=== PATIENT | female | born 1945 | race Caucasian/White ===

== ENCOUNTER 2017-01-13 03:55 | Observation (INO) | payer MEDICARE, OTHER ==
[2017-01-13] MEDS ORDERED: Sodium Chloride 0.9% 1000 ML 1,000 ML ONE (04:08)
--- NOTE | 2017-01-13 04:20 | ERPHSYRPT ---
- History of Present Illness Time Seen by Provider: 01/13/17 04:15 Patient Subjective Stated Complaint: PT STATES SHE HAS BEEN EXPERIENCING DIARRHEA SINCE 01/10/17. PT REPORTS ABDOMINAL PAIN. PT STATES TONIGHT THE DIARRHEA EPISODES ARE MORE FREQUENT, OFTEN EVERY 20 MINS. Triage Nursing Assessment: PT IS AOX3, AMBULATORY TO COT WITH NO DIFFICULTIES, SKIN IS PWD, RESPS ARE EASY AND NON LABORED. PT IS AFEBRILE. PT REPORTS ABD PAIN THAT IS NON RADIATING. PT DENIES ANY OCCURENCE OF DARK STOOLS. Physician History: 71 year old female has a 2 day history of general abd pain and diarrhea , no prior abd surgery, had negative colonoscopy 2 years ago by her report except for redundent "meandering" colon; no vomiting; Timing/Duration: day(s), gradual onset Activities at Onset: none Quality: cramping, fullness Abdominal Pain Onset Location: generalized abdomen Pain Radiation: no radiation Severity of Pain-Max: moderate Severity of Pain-Current: moderate Modifying Factors: Improves With: nothing Associated Symptoms: diarrhea Previous symptoms: no prior history Allergies/Adverse Reactions: No Known Drug Allergies Allergy (Verified 01/13/17 04:06) Home Medications: Amlodipine Besylate 5 mg [Norvasc 5 mg] 5 mg PO DAILY 08/07/15 [History] Carvedilol 6.25 mg [Coreg 6.25 MG] 6.25 mg PO BID 08/07/15 [History] Hydralazine HCl 25 mg PO BID 08/07/15 [History] Lisinopril 40 mg PO DAILY 08/07/15 [History] Potassium Chloride [Klor-Con 8] 8 meq PO BID 08/07/15 [History] Dabigatran Etexilate Mesylate [Pradaxa] 150 mg PO BID 01/03/17 [History] Furosemide 40 mg [Lasix 40 MG] 40 mg PO DAILY 01/03/17 [History] Hydrochlorothiazide 25 mg [hydroDIURIL 25 MG] 25 mg PO DAILY 01/03/17 [ History] Magnesium 250 mg PO DAILY 01/03/17 [History] Oxycodone HCl/Acetaminophen [Percocet 7.5-325 mg Tablet] 1 each PO UD PRN [History] Hx Tetanus, Diphtheria Vaccination/Date Given: Yes Hx Influenza Vaccination/Date Given: Yes Hx Pneumococcal Vaccination/Date Given: Yes Immunizations Up to Date: Yes - Review of Systems Constitutional: No Fever, No Chills Eyes: No Symptoms Ears, Nose, & Throat: No Symptoms Respiratory: No Cough, No Dyspnea Cardiac: No Chest Pain, No Edema, No Syncope Abdominal/Gastrointestinal: Abdominal Pain, Diarrhea, No Nausea, No Vomiting Genitourinary Symptoms: No Dysuria Musculoskeletal: No Back Pain, No Neck Pain Skin: No Rash Neurological: No Dizziness, No Focal Weakness, No Sensory Changes Psychological: No Symptoms Endocrine: No Symptoms All Other Systems: Reviewed and Negative - Past Medical History Pertinent Past Medical History: Yes Neurological History: No Pertinent History ENT History: Glaucoma Cardiac History: Arrhythmia Respiratory History: No Pertinent History Endocrine Medical History: No Pertinent History Musculoskeletal History: No Pertinent History GI Medical History: No Pertinent History History: No Pertinent History Psycho-Social History: No Pertinent History Female Reproductive Disorders: Breast Cancer Other Medical History: BREAST CANCER WITH LUMPECTOMY 2 YEARS AGO. - Past Surgical History Past Surgical History: Yes Neuro Surgical History: No Pertinent History Cardiac: Cardiac Catheterization Respiratory: No Pertinent History Gastrointestinal: Other Genitourinary: No Pertinent History Musculoskeletal: Joint Replacement, Other Female Surgical History: Lumpectomy Other Surgical History: colonoscopy 2000,left breast lumpectomy,right foot neuroma,SHOULDER REPLACEMENT 2016 - Social History Smoking Status: Never smoker Exposure to second hand smoke: No Drug Use: none Patient Lives Alone: No - Nursing Vital Signs Nursing Vital Signs: Initial Vital Signs Temperature 98.5 F Temperature Source Oral Pulse Rate 64 Respiratory Rate 22 Blood Pressure [Right Arm] 152/82 Pain Intensity 0 - Physical Exam General Appearance: no apparent distress, alert Eye Exam: PERRL/EOMI, eyes nml inspection Ears, Nose, Throat Exam: normal ENT inspection, pharynx normal, moist mucous membranes Neck Exam: normal inspection, non-tender, supple, full range of motion Respiratory Exam: normal breath sounds, lungs clear, No respiratory distress Cardiovascular Exam: regular rate/rhythm, normal heart sounds Gastrointestinal/Abdomen Exam: soft, distention (slight general ), No tenderness , No mass, No pulsatile mass Pelvic Exam: deferred Rectal Exam: deferred Back Exam: normal inspection, normal range of motion, No CVA tenderness, No vertebral tenderness Extremity Exam: normal inspection, normal range of motion, pelvis stable Neurologic Exam: alert, oriented x 3, cooperative, normal mood/affect, nml cerebellar function, sensation nml, No motor deficits Skin Exam: normal color, warm, dry SpO2: 96 Oxygen Delivery: Room Air - Course Nursing assessment & vital signs reviewed: Yes EKG Interpreted by Me: Sinus Rhythm, Left [place] Deviation, LAFB, Right Bundle Branch Block, Non-specific ST Changes, Other (new since 2013) - CT Exams Abdomen/Pelvis CT Interpretation: Tele-radiologist Report, Other (colitis, diverticulosis, lung nodules, renal cyst) Ordered Tests: Active Orders 24 hr Category Date Time Status Clean Catch Urine Specimen STAT Care 01/13/17 04:22 Active EKG-ER Only STAT Care 01/13/17 04:22 Active IV Insertion STAT Care 01/13/17 04:22 Active ABDOMEN AND PELVIS W/0 CONTRAS [CT] Stat Exams 01/13/17 04:22 Taken AMYLASE Stat Lab 01/13/17 04:05 Completed CBC W DIFF Stat Lab 01/13/17 04:05 Completed CMP Stat Lab 01/13/17 04:05 Completed LIPASE Stat Lab 01/13/17 04:05 Completed Lactic Acid Urgent Lab 01/13/17 04:22 Completed Occult Blood,Stool Other Stat Lab 01/13/17 05:08 Ordered TROPONIN Stat Lab 01/13/17 04:00 Completed UA Stat Lab 01/13/17 04:22 Ordered Medication Summary Generic Name Dose Route Start Last Admin Trade Name Freq PRN Reason Stop Dose Admin Sodium Chloride 1,000 mls @ 100 mls/hr 01/13/17 04:30 01/13/17 04:49 Sodium Chloride 0.9% 1000 Ml IV 02/12/17 04:29 100 mls/hr .Q10H JER Administration Levofloxacin/Dextrose 150 mls @ 100 mls/hr 01/13/17 04:32 Levofloxacin 750mg/150ml D5w IV 01/13/17 06:01 STAT ONE Metronidazole 100 mls @ 100 mls/hr 01/13/17 04:33 01/13/17 04:48 Flagyl 500 Mg Ivpb IV 01/13/17 05:32 100 mls/hr STAT ONE Administration Potassium Chloride 100 mls @ 50 mls/hr 01/13/17 05:00 Potassium Chloride 20 Meq In Water 100ml IV 01/13/17 08:59 Q2H JER Discontinued Medications Generic Name Dose Route Start Last Admin Trade Name Mariajose PRN Reason Stop Dose Admin Sodium Chloride Confirm 01/13/17 04:08 Sodium Chloride 0.9% 1000 Ml Administered 01/13/17 04:09 Dose 1,000 mls @ ud .ROUTE .STK-MED ONE Metronidazole Confirm 01/13/17 04:43 Flagyl 500 Mg Ivpb Administered 01/13/17 04:44 Dose 100 mls @ ud IV .STK-MED ONE Levofloxacin/Dextrose Confirm 01/13/17 04:43 Levofloxacin 750mg/150ml D5w Administered 01/13/17 04:44 Dose 150 mls @ ud IV .STK-MED ONE Lab/Rad Data: Laboratory Result Diagrams 01/13/17 04:05 01/13/17 04:05 Laboratory Results 01/13/17 01/13/17 01/13/17 Range/Units 04:22 04:05 04:05 WBC 15.9 H (4.0-10.5) K/mm3 RBC 4.56 (4.1-5.4) M/mm3 Hgb 13.5 (12.0-16.0) gm/dl Hct 40.8 (35-47) % MCV 89.5 (78-100) fl MCH 29.6 (26-32) pg MCHC 33.1 (32-36) g/dl RDW 14.9 H (11.5-14.0) % Plt Count 481 H (150-450) K/mm3 MPV 9.6 H (6-9.5) fl Gran % 78.3 H (36.0-66.0) % Lymphocytes % 11.6 L (24.0-44.0) % Monocytes % 9.0 (0.0-12.0) % Eosinophils % 0.8 (0.00-5.0) % Basophils % 0.3 (0.0-0.4) % Basophils # 0.04 (0-0.4) Sodium 139 (136-145) mEq/L Potassium 3.2 L (3.5-5.1) mEq/L Chloride 102 (98-107) mEq/L Carbon Dioxide 27.0 (21-32) mEq/L Anion Gap 12.8 (5-15) MEQ/L BUN 37 H (9-20) mg/dL Creatinine 1.29 (0.55-1.30) mg/dl Estimated GFR 43 ML/MIN Glucose 160 H (70-110) MG/DL Lactic Acid 1.6 (0.4-2.0) Calcium 8.9 (8.5-10.1) mg/dL Total Bilirubin 0.3 (0.2-1.0) mg/dL AST 24 (15-37) U/L ALT 18 (12-78) U/L Alkaline Phosphatase 90 (46-116) U/L Troponin I (0.000-0.056) ng/ml Serum Total Protein 8.1 (6.4-8.2) gm/dL Albumin 3.6 (3.4-5.0) g/dL Amylase 53 (25-115) U/L Lipase 122 (73-393) U/L 01/13/17 Range/Units 04:00 WBC (4.0-10.5) K/mm3 RBC (4.1-5.4) M/mm3 Hgb (12.0-16.0) gm/dl Hct (35-47) % MCV (78-100) fl MCH (26-32) pg MCHC (32-36) g/dl RDW (11.5-14.0) % Plt Count (150-450) K/mm3 MPV (6-9.5) fl Gran % (36.0-66.0) % Lymphocytes % (24.0-44.0) % Monocytes % (0.0-12.0) % Eosinophils % (0.00-5.0) % Basophils % (0.0-0.4) % Basophils # (0-0.4) Sodium (136-145) mEq/L Potassium (3.5-5.1) mEq/L Chloride (98-107) mEq/L Carbon Dioxide (21-32) mEq/L Anion Gap (5-15) MEQ/L BUN (9-20) mg/dL Creatinine (0.55-1.30) mg/dl Estimated GFR ML/MIN Glucose (70-110) MG/DL Lactic Acid (0.4-2.0) Calcium (8.5-10.1) mg/dL Total Bilirubin (0.2-1.0) mg/dL AST (15-37) U/L ALT (12-78) U/L Alkaline Phosphatase (46-116) U/L Troponin I < 0.017 (0.000-0.056) ng/ml Serum Total Protein (6.4-8.2) gm/dL Albumin (3.4-5.0) g/dL Amylase (25-115) U/L Lipase (73-393) U/L - Progress Progress: improved, re-examined Progress Note: 01/13/17 05:[address] 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
[2017-01-13 04:30] LABS: BASOPHIL % 0.3 % (0.0-0.4); Eosinophil % 0.8 % (0.00-5.0); Granulocytes % 78.3 % (36.0-66.0); Lymphocytes % 11.6 % (24.0-44.0); Mean Cell Volume 89.5 fl (78-100); Mean Corpuscular Hemoglobin 29.6 pg (26-32); Mean Platelet Volume 9.6 fl (6-9.5); Platelet Count 481 K/mm3 (150-450); Red Blood Count 4.56 M/mm3 (4.1-5.4); Red Cell Distribution Width 14.9 % (11.5-14.0); White Blood Count 15.9 K/mm3 (4.0-10.5)
[2017-01-13] MEDS ORDERED: LEVOFLOXACIN 750MG/150ML D5W 150 ML IV ONE ×2 (04:32→04:43)
[2017-01-13] MEDS ORDERED: FLAGYL 500 MG IVPB 100 ML IV ONE ×2 (04:33→04:43)
[2017-01-13 04:40] LABS: ALBUMIN 3.6 g/dL (3.4-5.0); ANION GAP 12.8 MEQ/L (5-15); BILIRUBIN,TOTAL 0.3 mg/dL (0.2-1.0); Potassium 3.2 mEq/L (3.5-5.1); Total Protein 8.1 gm/dL (6.4-8.2)
[2017-01-13] MEDS: Sodium Chloride 0.9% 1000 ML 1,000 ML IV SCH ×2 (04:49→21:15)
[2017-01-13] MEDS ORDERED: POTASSIUM CHLORIDE 20 mEq IN WATER 100ML 100 ML IV SCH ×2 (05:00→08:00)
[2017-01-13] MEDS ORDERED: NovoLIN R SQ PRN (06:40)
[2017-01-13] MEDS ORDERED: Phenergan 25 MG INJ IM PRN (06:40)
[2017-01-13] MEDS ORDERED: MORPHINE SULFATE 2 MG INJ IV PRN (06:40)
[2017-01-13] MEDS: FLAGYL 500 MG IVPB 100 ML IV SCH ×4 (07:55→23:57)
--- NOTE | 2017-01-13 08:14 | PCM.HP ---
History of Present Illness - Chief Complaint Chief Complaint: colitis Date: 01/13/17 History of Present Illness: is a 71 year old female. who has had diarrhea since Friday. No fevers or vomiting. no bloody stools or mucous. Some intermittent cramping abdominal pain. NO chills no recent antibiotics. No new medications. No known food exposures. - Review of Systems Constitutional: No Fever, No Chills Eyes: No Symptoms Ears, Nose, & Throat: No Symptoms Respiratory: No Cough, No Short Of Breath Cardiac: No Chest Pain, No Edema, No Syncope Abdominal/Gastrointestinal: Abdominal Pain, Diarrhea, No Nausea, No Vomiting Genitourinary Symptoms: No Dysuria Musculoskeletal: No Back Pain, No Neck Pain Skin: No Rash Neurological: No Dizziness, No Focal Weakness, No Sensory Changes Psychological: No Symptoms Endocrine: No Symptoms Hematologic/Lymphatic: No Symptoms Immunological/Allergic: No Symptoms Medications & Allergies Home Medications: Home Medication List Amlodipine Besylate 5 mg [Norvasc 5 mg] 5 mg PO DAILY 08/07/15 [History Confirmed 01/13/17] Carvedilol 6.25 mg [Coreg 6.25 MG] 6.25 mg PO BID 08/07/15 [History Confirmed 01/13/17] Hydralazine HCl 25 mg PO BID 08/07/15 [History Confirmed 01/13/17] Lisinopril 40 mg PO DAILY 08/07/15 [History Confirmed 01/13/17] Potassium Chloride [Klor-Con 8] 8 meq PO BID 08/07/15 [History Confirmed ] Dabigatran Etexilate Mesylate [Pradaxa] 150 mg PO BID 01/03/17 [History Confirmed 01/13/17] Furosemide 40 mg [Lasix 40 MG] 40 mg PO DAILY 01/03/17 [History Confirmed 01/13/17] Hydrochlorothiazide 25 mg [hydroDIURIL 25 MG] 25 mg PO DAILY 01/03/17 [ History Confirmed 01/13/17] Magnesium 250 mg PO DAILY 01/03/17 [History Confirmed 01/13/17] Oxycodone HCl/Acetaminophen [Percocet 7.5-325 mg Tablet] 1 each PO Q6HPRN PRN [History Confirmed 01/13/17] Allergies/Adverse Reactions: Allergies Allergy/AdvReac Type Severity Reaction Status Date / Time No Known Drug Allergies Allergy Verified 01/13/17 07:25 - Past Medical History Past Medical History: Yes Neurological History: No Pertinent History ENT History: Glaucoma Cardiac History: Arrhythmia Respiratory History: No Pertinent History Endocrine Medical History: No Pertinent History Musculoskelatal History: No Pertinent History GI Medical History: No Pertinent History History: No Pertinent History Pyscho-Social History: No Pertinent History Reproductive Disorders: Breast Cancer Comment: BREAST CANCER WITH LUMPECTOMY 2 YEARS AGO. - Female History Are you now?: No - Past Surgical History Past Surgical History: Yes Neuro Surgical History: No Pertinent History Cardiac History: Cardiac Catheterization Respiratory Surgery: No Pertinent History GI Surgical History: Other Genitourinary Surgical Hx: No Pertinent History Musculskeletal Surgical Hx: Joint Replacement, Other Female Surgical History: Lumpectomy Other Surgical History: colonoscopy 2000,left breast lumpectomy,right foot neuroma,SHOULDER REPLACEMENT 2016 - Social History Smoking Status: Never smoker Exposure to second hand smoke: No Alcohol: None Drug Use: none - Physical Exam Vital Signs: Vital Signs - 24 hr Temp Pulse Resp BP Pulse Ox 01/13/17 07:27 98.6 F 69 18 177/80 98 01/13/17 05:53 68 16 180/90 98 01/13/17 05:32 96 01/13/17 05:09 64 22 96 01/13/17 03:56 98.5 F 76 20 152/82 96 General Appearance: no apparent distress, alert Neurologic Exam: alert, oriented x 3, cooperative, normal mood/affect, nml cerebellar function, nml station & gait, sensation nml, No motor deficits Eye Exam: PERRL/EOMI, eyes nml inspection Ears, Nose, Throat Exam: normal ENT inspection, pharynx normal, moist mucous membranes Neck Exam: normal inspection, non-tender, supple, full range of motion Respiratory Exam: normal breath sounds, lungs clear, No respiratory distress Cardiovascular Exam: regular rate/rhythm, normal heart sounds, normal peripheral pulses Gastrointestinal/Abdomen Exam: soft, normal bowel sounds, No tenderness, No mass Back Exam: normal inspection, normal range of motion, No CVA tenderness, No vertebral tenderness Extremity Exam: normal inspection, normal range of motion, pelvis stable Skin Exam: normal color, warm, dry, No rash Lymphatic Exam: No adenopathy Assessment/Plan (1) Colitis presumed to be due to infection Current Visit: Yes Status: Acute Assessment & Plan: she has received abx in the ED levofloxacin and flagyl will continue for now with fluid and potassium replacement check mag monitor for symptoms and dehydration c. diff testing negative monitor stools try loperamide if needed for severe diarrhea Code(s): A09 - INFECTIOUS GASTROENTERITIS AND COLITIS, UNSPECIFIED (2) Paroxysmal a-fib Current Visit: Yes Status: Acute Code(s): I48.0 - PAROXYSMAL ATRIAL FIBRILLATION (3) Essential hypertension Current Visit: Yes Status: Acute Code(s): I10 - ESSENTIAL (PRIMARY) HYPERTENSION
[2017-01-13] MEDS ORDERED: NON-FORMULARY ITEM (Oxycodone Hcl/Acetaminophen [Percocet 7.5-325 Mg Tablet] 1 EACH) PO PRN (08:24)
[2017-01-13 09:01] LABS: COMPLETE URINE MICROSCOPIC? YES; Collection Type VOID
--- NOTE | 2017-01-13 09:06 | XRAY ---
Indication: Abdominal pain and diarrhea. Multiple contiguous axial images obtained through the abdomen and pelvis without contrast as ordered. Comparison: None Lung bases hyperinflated with mild bilateral fibrosis/scarring and minimal patchy groundglass opacities in the visualized right middle lobe. No consolidation or large effusion. Heart is not enlarged. Noncontrasted stomach and bowel loops appear nonobstructed. There are moderate fluid distended small and large bowel loops with fluid leveling and wall thickening favoring enterocolitis. Mild pericolonic stranding seen of the left hemicolon including sigmoid. Mild scattered descending/sigmoid diverticulosis. No free fluid/air. Reported appendectomy and hysterectomy. Spleen surgically absent. 1.5 cm right mid renal cortical cyst. Gallbladder also not seen either contracted or surgically absent. Pancreas appears atrophic. Remaining liver, adrenal glands, kidneys, ureters, and bladder appear unremarkable for noncontrast exam. Mild aortoiliac calcifications without AAA. Osseous structures demonstrates moderate/advanced multilevel spinal degenerative spondylosis. There is grade 1 spondylolisthesis of L4 on L5 on S1. Impression: 1. Fluid distended small and large bowel loops with wall thickening favoring enterocolitis. 2. Incidental right renal cyst. 3. Partially visualized subtle right middle lobe groundglass airspace opacities. Correlate clinically. 4. Multilevel spinal degenerative spondylosis and grade 1 spondylolisthesis of L4 on L5 on S1. Comment: Preliminary interpretation was made by [facility]. No discrepancy. CT DI 18.52
[2017-01-13] MEDS: PERCOCET TABLET 5/325MG PO PRN ×3 (09:22→22:54)
[2017-01-13] MEDS: Apresoline 25 MG TABLET PO SCH ×2 (09:22→22:44)
[2017-01-13] MEDS: NORVASC 5 MG PO SCH (09:23)
[2017-01-13] MEDS: PRADAXA 75 MG PO SCH ×2 (09:23→22:43)
[2017-01-13] MEDS: hydroDIURIL 25 MG PO SCH (09:23)
[2017-01-13] MEDS: Coreg 6.25 MG PO SCH ×2 (09:23→22:44)
[2017-01-13] MEDS: Zestril 20 MG PO SCH (09:23)
[2017-01-13] MEDS: Klor Con 10 MEQ PO SCH ×2 (09:23→22:44)
[2017-01-13] MEDS ORDERED: NON-FORMULARY ITEM (Lisinopril [Lisinopril] 40 MG) PO SCH (10:00)
[2017-01-13] MEDS ORDERED: NON-FORMULARY ITEM (Dabigatran Etexilate Mesylate [Pradaxa] 150 MG) PO SCH (10:00)
[2017-01-13] MEDS ORDERED: POTASSIUM CHLORIDE 8 MEQ PO SCH (10:00)
[2017-01-13 12:36] LABS: Bacteria FEW /HPF (NEGATIVE); Epithelial Cells FEW /HPF (FEW)
[2017-01-13] MEDS: Magnesium 1 Gm / 100 Ml D5W*** 100 ML IV SCH ×2 (21:24→23:01)
[2017-01-13] MEDS ORDERED: LEVOFLOXACIN 750MG/150ML D5W 150 ML IV SCH (22:00)
[2017-01-14 05:58] LABS: BASOPHIL % 0.4 % (0.0-0.4); Eosinophil % 2.7 % (0.00-5.0); Granulocytes % 65.5 % (36.0-66.0); Lymphocytes % 16.6 % (24.0-44.0); Mean Cell Volume 90.6 fl (78-100); Mean Corpuscular Hemoglobin 30.1 pg (26-32); Mean Platelet Volume 9.5 fl (6-9.5); Monocytes % 14.8 % (0.0-12.0); Platelet Count 414 K/mm3 (150-450); Red Blood Count 3.82 M/mm3 (4.1-5.4); Red Cell Distribution Width 14.8 % (11.5-14.0)
[2017-01-14] MEDS: PERCOCET TABLET 5/325MG PO PRN (06:03)
[2017-01-14] MEDS: FLAGYL 500 MG IVPB 100 ML IV SCH (06:04)
[2017-01-14 06:14] LABS: ANION GAP 11.5 MEQ/L (5-15); BILIRUBIN,TOTAL 0.4 mg/dL (0.2-1.0); Carbon Dioxide 25.7 mEq/L (21-32); Potassium 3.3 mEq/L (3.5-5.1); Total Protein 6.6 gm/dL (6.4-8.2)
[2017-01-14 08:08] VITALS: BP 148/75; PULSE 59; O2SAT 98
--- NOTE | 2017-01-14 08:17 | PCM.DCORD ---
- Discharge Discharge Date: 01/14/17 Disposition: Home, Self-Care Condition: Good Prescriptions: New Metronidazole 500 mg [Flagyl 500 MG] 500 mg PO TID #15 tablet Levofloxacin [Levaquin] 500 mg PO DAILY #5 tablet Continue Potassium Chloride [Klor-Con 8] 8 meq PO BID Hydralazine HCl 25 mg PO BID Amlodipine Besylate 5 mg [Norvasc 5 mg] 5 mg PO DAILY Carvedilol 6.25 mg [Coreg 6.25 MG] 6.25 mg PO BID Lisinopril 40 mg PO DAILY Hydrochlorothiazide 25 mg [hydroDIURIL 25 MG] 25 mg PO DAILY Dabigatran Etexilate Mesylate [Pradaxa] 150 mg PO BID Furosemide 40 mg [Lasix 40 MG] 40 mg PO DAILY Magnesium 250 mg PO DAILY Oxycodone HCl/Acetaminophen [Percocet 7.5-325 mg Tablet] 1 each PO Q6HPRN PRN PRN Reason: Pain Follow up with: ALEXIS VELAZQUEZ [Primary Care Provider] - 1 Week
[2017-01-14] MEDS ORDERED: Klor Con 10 MEQ PO SCH (10:00)
[2017-01-14] MEDS: Apresoline 25 MG TABLET PO SCH (10:23)
[2017-01-14] MEDS: NORVASC 5 MG PO SCH (10:23)
[2017-01-14] MEDS: Zestril 20 MG PO SCH (10:23)
[2017-01-14] MEDS: hydroDIURIL 25 MG PO SCH (10:23)
[2017-01-14] MEDS: Coreg 6.25 MG PO SCH (10:23)
[2017-01-14] MEDS: PRADAXA 75 MG PO SCH (10:24)
--- NOTE | 2017-01-14 17:53 | PCM.DS ---
Discharge Summary Date of Admission: 01/13/17 06:27 Date of Discharge: 01/14/17 Admitting Physician: ALEXIS VELAZQUEZ Primary Care Provider: ALEXIS VELAZQUEZ Allergies Allergies No Known Drug Allergies Allergy (Verified 01/13/17 07:25) Hospital Summary - Hospital Course Hospital Course: She presented with frequent severe diarrhea. Was found to have mild dehydration and acute collitis. She had negative c. diff testing. She was treated with levaquin and flagyl and the diarrhea improved greatly she was without pain or nausea and tolerating po well and was discharged to home. - Vitals & Intake/Output Vital Signs: Vital Signs Temperature 98.8 F 01/14/17 08:00 Pulse Rate 59 L 01/14/17 08:00 Respiratory Rate 18 01/14/17 08:00 Blood Pressure 148/75 01/14/17 08:00 O2 Sat by Pulse Oximetry 98 01/14/17 08:00 Oxygen-Last Documented O2 Percentage 2 Liters = 28% Intake & Output: Intake & Output 01/12/17 01/13/17 01/14/17 01/15/17 11:59 11:59 11:59 11:59 Intake Total 2346 Output Total 400 Balance 1946 Weight 78.245 kg 82.327 kg - Lab Result Diagrams: 01/14/17 05:15 01/14/17 05:15 Lab Results-Last 24 Hrs: Lab Results-Last 24 Hours 01/13/17 01/14/17 01/14/17 Range/Units 18:31 05:15 05:15 WBC 10.0 (4.0-10.5) K/mm3 RBC 3.82 L (4.1-5.4) M/mm3 Hgb 11.5 L (12.0-16.0) gm/dl Hct 34.6 L (35-47) % MCV 90.6 (78-100) fl MCH 30.1 (26-32) pg MCHC 33.2 (32-36) g/dl RDW 14.8 H (11.5-14.0) % Plt Count 414 (150-450) K/mm3 MPV 9.5 (6-9.5) fl Gran % 65.5 (36.0-66.0) % Lymphocytes % 16.6 L (24.0-44.0) % Monocytes % 14.8 H (0.0-12.0) % Eosinophils % 2.7 (0.00-5.0) % Basophils % 0.4 (0.0-0.4) % Basophils # 0.04 (0-0.4) Sodium 141 (136-145) mEq/L Potassium 3.5 3.3 L (3.5-5.1) mEq/L Chloride 107 (98-107) mEq/L Carbon Dioxide 25.7 (21-32) mEq/L Anion Gap 11.5 (5-15) MEQ/L BUN 21 H (9-20) mg/dL Creatinine 1.06 (0.55-1.30) mg/dl Estimated GFR 54 ML/MIN Glucose 97 (70-110) MG/DL Calcium 8.6 (8.5-10.1) mg/dL Magnesium (1.8-2.4) mg/dL Total Bilirubin 0.4 (0.2-1.0) mg/dL AST 22 (15-37) U/L ALT 15 (12-78) U/L Alkaline Phosphatase 71 (46-116) U/L Serum Total Protein 6.6 (6.4-8.2) gm/dL Albumin 3.0 L (3.4-5.0) g/dL 01/14/17 Range/Units 05:15 WBC (4.0-10.5) K/mm3 RBC (4.1-5.4) M/mm3 Hgb (12.0-16.0) gm/dl Hct (35-47) % MCV (78-100) fl MCH (26-32) pg MCHC (32-36) g/dl RDW (11.5-14.0) % Plt Count (150-450) K/mm3 MPV (6-9.5) fl Gran % (36.0-66.0) % Lymphocytes % (24.0-44.0) % Monocytes % (0.0-12.0) % Eosinophils % (0.00-5.0) % Basophils % (0.0-0.4) % Basophils # (0-0.4) Sodium (136-145) mEq/L Potassium (3.5-5.1) mEq/L Chloride (98-107) mEq/L Carbon Dioxide (21-32) mEq/L Anion Gap (5-15) MEQ/L BUN (9-20) mg/dL Creatinine (0.55-1.30) mg/dl Estimated GFR ML/MIN Glucose (70-110) MG/DL Calcium (8.5-10.1) mg/dL Magnesium 2.2 (1.8-2.4) mg/dL Total Bilirubin (0.2-1.0) mg/dL AST (15-37) U/L ALT (12-78) U/L Alkaline Phosphatase (46-116) U/L Serum Total Protein (6.4-8.2) gm/dL Albumin (3.4-5.0) g/dL Discharge Exam General Appearance: no apparent distress Neurologic Exam: alert, oriented x 3, cooperative Skin Exam: warm, dry Eye Exam: No scleral icterus Ears, Nose, Throat Exam: moist mucous membranes Neck Exam: non-tender, supple Respiratory Exam: lungs clear, No diminished breath sounds Cardiovascular Exam: regular rate/rhythm, normal heart sounds Gastrointestinal/Abdomen Exam: soft, normal bowel sounds, No tenderness Extremity Exam: normal inspection Final Diagnosis/Problem List - Final Discharge Diagnosis/Problem (1) Colitis presumed to be due to infection Status: Acute (2) Paroxysmal a-fib Status: Acute (3) Essential hypertension Status: Acute - Discharge Disposition: Home, Self-Care Condition: Good Prescriptions: New Metronidazole 500 mg [Flagyl 500 MG] 500 mg PO TID #15 tablet Levofloxacin [Levaquin] 500 mg PO DAILY #5 tablet Continue Potassium Chloride [Klor-Con 8] 8 meq PO BID Hydralazine HCl 25 mg PO BID Amlodipine Besylate 5 mg [Norvasc 5 mg] 5 mg PO DAILY Carvedilol 6.25 mg [Coreg 6.25 MG] 6.25 mg PO BID Lisinopril 40 mg PO DAILY Hydrochlorothiazide 25 mg [hydroDIURIL 25 MG] 25 mg PO DAILY Dabigatran Etexilate Mesylate [Pradaxa] 150 mg PO BID Furosemide 40 mg [Lasix 40 MG] 40 mg PO DAILY Magnesium 250 mg PO DAILY Oxycodone HCl/Acetaminophen [Percocet 7.5-325 mg Tablet] 1 each PO Q6HPRN PRN PRN Reason: Pain Instructions: Abdominal Pain-Adult, Diarrhea and Traveler's Diarrhea -- Adult Follow up with: ALEXIS VELAZQUEZ [Primary Care Provider] - 01/21/17 9:30 am Forms: Discharge Instructions, Patient Portal Information
[2017-01-14] MEDS ORDERED: LEVOFLOXACIN 750MG/150ML D5W 150 ML IV SCH (22:00)
== END 2017-01-14 12:15 | disposition home or self-care (01) ==
LOC: ED 03:55 → ICU 06:27 → MED SURG 12:55
PROVIDERS: ADMIT Family Medicine; ATTEND Family Medicine
DX: A09 Infectious gastroenteritis and colitis, unspecified (principal); I48.0 Paroxysmal atrial fibrillation; I10 Essential (primary) hypertension; Z79.01 Long term (current) use of anticoagulants; Z79.899 Other long term (current) drug therapy; Z85.3 Personal history of malignant neoplasm of breast
CPT/HCPCS: 93268; 96365; 99285; 36000; 96360; 93005; 82150; 81000; 36415 ×2; 82272; 84132; 83690; 83735 ×2; 87493 ×2; 87045; 87335; 87046; 85025 ×2; 80053 ×2; 84484; 74176; 94760; 83605; A9270 ×12; 96361; G0378; J1956; J3475; J3480

== ENCOUNTER 2019-04-20 03:33 | Emergency (ER) | payer MEDICARE, OTHER ==
[2019-04-20] MEDS ORDERED: Sodium Chloride 0.9% 1000 ML 1,000 ML ONE (03:59)
[2019-04-20] MEDS: Sodium Chloride 0.9% 1000 ML 1,000 ML IV SCH (04:03)
[2019-04-20] MEDS ORDERED: APRESOLINE 20 MG/ML INJ ONE ×2 (04:05→06:11)
[2019-04-20] MEDS: APRESOLINE 20 MG/ML INJ IV ONE ×2 (04:07→06:13)
[2019-04-20 04:10] LABS: BASOPHIL % 0.6 % (0.0-0.4); Basophil (Absolute #) 0.07 (0-0.4); Eosinophil % 1.3 % (0.00-5.0); Eosinophil (Absolute #) 0.15 (0-0.5); Granulocytes % 64.3 % (36.0-66.0); Hematocrit 43.6 % (35-47); Hemoglobin 14.4 gm/dl (12.0-16.0); Lymphocyte (Absolute #) 2.38 (1.0-4.6); Lymphocytes % 20.9 % (24.0-44.0); Mean Cell Volume 92.4 fl (78-100); Mean Corpuscular Hemoglobin 30.5 pg (26-32); Mean Platelet Volume 9.9 fl (6-9.5); Monocyte (Absolute #) 1.47 (0.0-1.3); Monocytes % 12.9 % (0.0-12.0); Platelet Count 396 K/mm3 (150-450); Red Blood Count 4.72 M/mm3 (4.1-5.4); Red Cell Distribution Width 14.9 % (11.5-14.0); White Blood Count 11.4 K/mm3 (4.0-10.5)
--- NOTE | 2019-04-20 04:10 | ERPHSYRPT ---
- History of Present Illness Time Seen by Provider: 04/20/19 03:40 Source: patient Exam Limitations: clinical condition Patient Subjective Stated Complaint: Nose bleed Triage Nursing Assessment: Patient ambulated back to ED and transferred self to bed. Patient A+O X 3. Patient's skin pink, warm and dry. Patient complains of nose bleed since 0145 after she blew her nose. Patient denies pain or discomfort. Patient applied pressure and unable to stop bleed. Active bright red blood coming from left nare at this time. Nasal clamp applied upon arrival with ice placed on bridge of nose. Physician History: PATIENT WITH A HISTORY OF PAROXYSMAL ATRIAL FIBRILLATION, ON ANTICOAGULANTS XARELTO 15MG DAILY. HAD ONSET OF NOSE BLEED LEFT NARES AFTER BLOWING HER NOSE AT 0145. HAS HAD RECENT NOSE BLEED 2 WEEKS AND HAD HER XARELTO 20MG DAILY TAPERED TO XARELTO 15MG DAILY. DENIES ASSOCIATED FACIAL PAIN, NASAL CONGESTION OR HEADACHE. Timing/Duration: abrupt onset Severity: severe ENT Location: nose Prearrival Treatment: no prearrival treatment Modifying Factors: Improves With: other (BLOWING HER NOSE) Associated Symptoms: other (HYPERTENSION) Allergies/Adverse Reactions: No Known Drug Allergies Allergy (Verified 04/20/19 03:39) Home Medications: Amlodipine Besylate 5 mg [Norvasc 5 mg] 5 mg PO DAILY 08/07/15 [History] Carvedilol 6.25 mg [Coreg 6.25 MG] 6.25 mg PO BID 08/07/15 [History] Hydralazine HCl 50 mg PO BID 08/07/15 [History] Lisinopril 40 mg PO DAILY 08/07/15 [History] Potassium Chloride [Klor-Con 8] 8 meq PO TID 08/07/15 [History] Furosemide 40 mg [Lasix 40 MG] 40 mg PO DAILY 01/03/17 [History] Magnesium 250 mg PO DAILY 01/03/17 [History] Rivaroxaban [Xarelto] 15 mg PO DAILY 04/20/19 [History] Hx Tetanus, Diphtheria Vaccination/Date Given: Yes Hx Influenza Vaccination/Date Given: Yes Hx Pneumococcal Vaccination/Date Given: Yes Immunizations Up to Date: Yes - Review of Systems Constitutional: No Fever, No Chills Eyes: No Symptoms Ears, Nose, & Throat: Epistaxis (LEFT NARES) Respiratory: No Symptoms, No Cough, No Dyspnea Cardiac: No Chest Pain, No Edema, No Syncope Abdominal/Gastrointestinal: Constipation, No Abdominal Pain, No Nausea, No Vomiting, No Diarrhea Genitourinary Symptoms: No Symptoms, No Dysuria Musculoskeletal: No Symptoms, No Back Pain, No Neck Pain Skin: No Symptoms, No Rash Neurological: No Symptoms, No Dizziness, No Focal Weakness, No Sensory Changes Psychological: No Symptoms Endocrine: No Symptoms All Other Systems: Reviewed and Negative - Past Medical History Pertinent Past Medical History: Yes Neurological History: Peripheral Neuropathy ENT History: Glaucoma Cardiac History: Arrhythmia, Hypertension Respiratory History: No Pertinent History Endocrine Medical History: No Pertinent History Musculoskeletal History: Other GI Medical History: No Pertinent History History: No Pertinent History Psycho-Social History: No Pertinent History Female Reproductive Disorders: Breast Cancer Other Medical History: R shoulder replacement 2017 - Past Surgical History Past Surgical History: Yes Neuro Surgical History: No Pertinent History Cardiac: Cardiac Catheterization Respiratory: No Pertinent History Gastrointestinal: Other Genitourinary: No Pertinent History Musculoskeletal: Joint Replacement, Other Female Surgical History: Hysterectomy, Lumpectomy Other Surgical History: colonoscopy 2000,left breast lumpectomy,right foot neuroma,SHOULDER REPLACEMENT 2016 - Social History Smoking Status: Never smoker Exposure to second hand smoke: No Drug Use: none, narcotics Patient Lives Alone: No - Female History Hx Last Menstrual Period: hysterectomy 1980 Hx Now: No - Nursing Vital Signs Nursing Vital Signs: Initial Vital Signs Temperature 98.3 F 04/20/19 03:35 Pulse Rate 65 04/20/19 03:35 Respiratory Rate 20 04/20/19 03:35 Blood Pressure 209/108 04/20/19 03:35 O2 Sat by Pulse Oximetry 97 04/20/19 03:35 Pain Scale Pain Intensity 0 - Physical Exam General Appearance: no apparent distress, alert Eye Exam: bilateral eye: normal inspection, PERRL, EOMI Ear Exam: bilateral ear: auricle normal, canal normal, TM normal Nasal Exam: dried blood (NO EVIDENCE OF EPISTAXIS UPON BLOWING NOSE) Throat Exam: pharynx normal, moist mucus membranes, No tonsillar exudate Neck Exam: supple, trachea midline Cardiovascular/Respiratory Exam: normal breath sounds, regular rate/rhythm Abdominal Exam: non-tender, soft Neurologic Exam: alert, oriented x 3, sensation nml, No motor deficits Skin Exam: normal color, warm, dry SpO2 Interpretation: normal SpO2: 97 Ordered Tests: Active Orders 24 hr Category Date Time Status Tool Or Die Drawing Checker STAT Care 04/20/19 03:55 Active IV Insertion STAT Care 04/20/19 03:55 Active BMP Stat Lab 04/20/19 03:52 Completed CBC W DIFF Stat Lab 04/20/19 03:52 Completed PROTIME WITH INR Stat Lab 04/20/19 03:52 Completed Medication Summary Generic Name Dose Route Start Last Admin Trade Name Freq PRN Reason Stop Dose Admin Sodium Chloride 1,000 mls @ 50 mls/hr 04/20/19 04:00 04/20/19 04:03 Sodium Chloride 0.9% 1000 Ml IV 05/20/19 03:59 50 mls/hr .Q20H JER Administration Discontinued Medications Generic Name Dose Route Start Last Admin Trade Name Freq PRN Reason Stop Dose Admin Hydralazine HCl 20 mg 04/20/19 04:02 04/20/19 04:07 Apresoline 20 Mg/Ml Inj IV 04/20/19 04:03 20 mg STAT ONE Administration Hydralazine HCl Confirm 04/20/19 04:05 Apresoline 20 Mg/Ml Inj Administered 04/20/19 04:06 Dose 20 mg .ROUTE .STK-MED ONE Hydralazine HCl 20 mg 04/20/19 06:11 Apresoline 20 Mg/Ml Inj IV 04/20/19 06:12 STAT ONE Lab/Rad Data: Laboratory Result Diagrams 04/20/19 03:52 04/20/19 03:52 Laboratory Results 04/20/19 04/20/19 04/20/19 Range/Units 03:52 03:52 03:52 WBC 11.4 H (4.0-10.5) K/mm3 RBC 4.72 (4.1-5.4) M/mm3 Hgb 14.4 (12.0-16.0) gm/dl Hct 43.6 (35-47) % MCV 92.4 (78-100) fl MCH 30.5 (26-32) pg MCHC 33.0 (32-36) g/dl RDW 14.9 H (11.5-14.0) % Plt Count 396 (150-450) K/mm3 MPV 9.9 H (6-9.5) fl Gran % 64.3 (36.0-66.0) % Eos # (Auto) 0.15 (0-0.5) Absolute Lymphs (auto) 2.38 (1.0-4.6) Absolute Monos (auto) 1.47 H (0.0-1.3) Lymphocytes % 20.9 L (24.0-44.0) % Monocytes % 12.9 H (0.0-12.0) % Eosinophils % 1.3 (0.00-5.0) % Basophils % 0.6 (0.0-0.4) % Absolute Granulocytes 7.30 H (1.4-6.9) Basophils # 0.07 (0-0.4) PT 17.8 H (9.95-12.35) SECONDS INR 1.56 (0.8-3.0) Sodium 140 (137-145) mmol/L Potassium 3.8 (3.5-5.1) mmol/L Chloride 106 (98-107) mmol/L Carbon Dioxide 24 (22-30) mmol/L Anion Gap 13.9 (5-15) MEQ/L BUN 23 H (7-17) mg/dL Creatinine 0.85 (0.52-1.04) mg/dL Estimated GFR > 60.0 ML/MIN Glucose 131 H (74-106) mg/dL Calcium 9.7 (8.4-10.2) mg/dL - Progress Progress Note: 04/20/19 04:15 IV NORMAL SALINE 50ML/HR, HYDRALAZINE 20MG IV OVER 5 MINUTES FOR BP 201/108 04/20/19 06:14, BP 170,84, THEN RETURNED TO BP 192/94 2ND DOSE HYDRALAZINE 20MG IV 04/20/19 06:47, BP 172/88 - Departure Departure Disposition: Home Clinical Impression: EPISTAXIS RESOLVED, HYPERTENSION, MEDICATION NONCOMPLIANCE Condition: Stable Critical Care Time: No Referrals: TABITHA CURIEL ADVERTISING ACCOUNT REPRESENTATIVE [Primary Care Provider] - Additional Instructions: TAKE ALL OF YOUR MORNING MEDICATIONS UPON ARRIVAL AT HOME DIRECTED. RETURN TO EMERGENCY ROOM FOR NOSE BLEEDS.
[2019-04-20 04:18] LABS: INR 1.56 (0.8-3.0); PROTIME 17.8 SECONDS (9.95-12.35)
[2019-04-20 04:22] LABS: ANION GAP 13.9 MEQ/L (5-15); BLOOD UREA NITROGEN 23 mg/dL (7-17); CHLORIDE 106 mmol/L (98-107); Calcium 9.7 mg/dL (8.4-10.2); Carbon Dioxide 24 mmol/L (22-30); Creatinine 1 0.85 mg/dL (0.52-1.04); Glucose 131 mg/dL (74-106); Potassium 3.8 mmol/L (3.5-5.1); SODIUM 140 mmol/L (137-145)
[2019-04-20 06:46] VITALS: BP 176/81; PULSE 66
[2019-04-20 06:47] VITALS: O2SAT 97
== END 2019-04-20 06:55 | disposition home or self-care (01) ==
LOC: ED 03:33
DX: R04.0 Epistaxis (principal); I10 Essential (primary) hypertension; Z91.14 Patient's other noncompliance with medication regimen; I48.91 Unspecified atrial fibrillation; Z79.01 Long term (current) use of anticoagulants; Z79.899 Other long term (current) drug therapy; G62.9 Polyneuropathy, unspecified; Z85.3 Personal history of malignant neoplasm of breast
CPT/HCPCS: 36000; 36415; 80048; 85025; 85610; 93041; 96360; 96361; 96374; 96375; 96376; 99284; J0360

== ENCOUNTER 2019-05-01 23:45 | Emergency (ER) | payer MEDICARE, OTHER ==
[~2019-05-01 23:45] MED LIST: Sodium Chloride 0.9% 1000 ML 1,000 ML IV SCH
[2019-05-02] MEDS ORDERED: APRESOLINE 20 MG/ML INJ IV ONE ×3 (00:01→00:58)
[2019-05-02] MEDS ORDERED: APRESOLINE 20 MG/ML INJ ONE ×2 (00:14→00:57)
[2019-05-02] MEDS ORDERED: Sodium Chloride 0.9% 1000 ML 1,000 ML ONE (00:14)
--- NOTE | 2019-05-02 00:29 | ERPHSYRPT ---
- History of Present Illness Time Seen by Provider: 05/01/19 23:56 Patient Subjective Stated Complaint: Pt. states she started having nosebleed approx 45 min travel [place]. pt had another episode 12 days ago and seen here in ed. pt states she had nose cauterized left nare. Triage Nursing Assessment: pink/warm/dry, resp easy, steady gait, a&ox4, active bleeding noted from right side. clamp applied. Physician History: PATIENT WITH A HISTORY OF PAROXYSMAL ATRIAL FIBRILLATION, PRESENTLY ON ANTICOAGULANTS XARELTO 15MG DAILY, HYPERTENSION COMPLAINS OF HAVING 3 NOSEBLEEDS TODAY. HAD CAUTERY OF LEFT NARES FOR NOSEBLEED ON 04/26/2019 AT [facility]. NOW COMPLAINS OF BLEEDING FROM BOTH NARES. EVALUATED IN THE EMERGENCY ROOM ON DATE 04/20/2019 FOR EPISTAXIS ASSOCIATED WITH HYPERTENSION. PATIENT IS NO 5 ANTIHYPERTENSIVES AND HAD NOT TAKEN HER EVENING DOSE OF MEDICATIONS TODAY. Timing/Duration: gradual onset, this morning, this afternoon, this evening Severity: moderate ENT Location: nose Prearrival Treatment: prescription meds Modifying Factors: Improves With: activity Associated Symptoms: denies symptoms Allergies/Adverse Reactions: No Known Drug Allergies Allergy (Verified 05/01/19 23:47) Home Medications: Amlodipine Besylate 5 mg [Norvasc 5 mg] 5 mg PO DAILY 08/07/15 [History] Carvedilol 6.25 mg [Coreg 6.25 MG] 6.25 mg PO BID 08/07/15 [History] Hydralazine HCl 50 mg PO BID 08/07/15 [History] Lisinopril 40 mg PO DAILY 08/07/15 [History] Potassium Chloride [Klor-Con 8] 8 meq PO TID 08/07/15 [History] Furosemide 40 mg [Lasix 40 MG] 40 mg PO DAILY 01/03/17 [History] Magnesium 250 mg PO DAILY 01/03/17 [History] Rivaroxaban [Xarelto] 15 mg PO DAILY 04/20/19 [History] Hx Tetanus, Diphtheria Vaccination/Date Given: Yes Hx Influenza Vaccination/Date Given: Yes Hx Pneumococcal Vaccination/Date Given: Yes Immunizations Up to Date: Yes - Review of Systems Constitutional: No Fever, No Chills Eyes: No Symptoms Ears, Nose, & Throat: Epistaxis Respiratory: No Symptoms, No Cough, No Dyspnea Cardiac: No Symptoms, No Chest Pain, No Edema, No Syncope Abdominal/Gastrointestinal: No Symptoms, No Abdominal Pain, No Nausea, No Vomiting, No Diarrhea Genitourinary Symptoms: No Symptoms, No Dysuria Musculoskeletal: No Symptoms (LEFT NARES, UNABLE TO VISUALIZE SITE), No Back Pain, No Neck Pain Skin: No Rash Neurological: No Symptoms, No Dizziness, No Focal Weakness, No Sensory Changes Psychological: No Symptoms Endocrine: No Symptoms All Other Systems: Reviewed and Negative - Past Medical History Pertinent Past Medical History: Yes Neurological History: Peripheral Neuropathy ENT History: Glaucoma Cardiac History: Arrhythmia, Hypertension Respiratory History: No Pertinent History Endocrine Medical History: No Pertinent History Musculoskeletal History: Other GI Medical History: No Pertinent History History: No Pertinent History Psycho-Social History: No Pertinent History Female Reproductive Disorders: Breast Cancer Other Medical History: R shoulder replacement 2017 - Past Surgical History Past Surgical History: Yes Neuro Surgical History: No Pertinent History Cardiac: Cardiac Catheterization Respiratory: No Pertinent History Gastrointestinal: Other Genitourinary: No Pertinent History Musculoskeletal: Joint Replacement, Other Female Surgical History: Hysterectomy, Lumpectomy Other Surgical History: colonoscopy 2000,left breast lumpectomy,right foot neuroma,SHOULDER REPLACEMENT 2016 - Social History Smoking Status: Never smoker Exposure to second hand smoke: Yes Drug Use: none Patient Lives Alone: No - Nursing Vital Signs Nursing Vital Signs: Initial Vital Signs Temperature 98.0 F 05/01/19 23:47 Pulse Rate 73 05/01/19 23:47 Respiratory Rate 18 05/01/19 23:47 Blood Pressure 237/121 05/01/19 23:47 O2 Sat by Pulse Oximetry 98 05/01/19 23:47 Pain Scale Pain Intensity 3 - Physical Exam SpO2: 98 - Course EKG Interpreted by Me: RATE, Sinus Rhythm, NORMAL AXIS (RATE OF 62, INTRAVENTRICULAR CONDUCTION DELAY) Ordered Tests: Active Orders 24 hr Category Date Time Status [employer] Ticket Checker STAT Care 05/02/19 00:00 Active EKG-ER Only STAT Care 05/01/19 23:58 Active PROTIME WITH INR Stat Lab 05/02/19 00:44 Completed TROPONIN Q3H Lab 05/02/19 00:44 Completed TROPONIN Q3H Lab 05/02/19 03:00 Ordered TROPONIN Q3H Lab 05/02/19 06:00 Ordered TROPONIN Q3H Lab 05/02/19 09:00 Ordered TROPONIN Q3H Lab 05/02/19 12:00 Ordered Medication Summary Generic Name Dose Route Start Last Admin Trade Name Mariajose PRN Reason Stop Dose Admin Sodium Chloride 1,000 mls @ 50 mls/hr 05/01/19 23:45 05/02/19 00:16 Sodium Chloride 0.9% 1000 Ml IV 05/31/19 23:44 50 mls/hr .Q20H JER Administration Discontinued Medications Generic Name Dose Route Start Last Admin Trade Name Mariajose PRN Reason Stop Dose Admin Clonidine 0.2 mg 05/02/19 01:25 05/02/19 01:29 Catapres 0.1 Mg PO 05/02/19 01:26 0.2 mg STAT ONE Administration Clonidine Confirm 05/02/19 01:27 Catapres 0.1 Mg Administered 05/02/19 01:28 Dose 0.2 mg .ROUTE .STK-MED ONE Fentanyl Citrate 50 mcg 05/02/19 01:51 05/02/19 01:53 Sublimaze 100 Mcg/2 Ml IV 05/02/19 01:52 50 mcg STAT ONE Administration Fentanyl Citrate Confirm 05/02/19 01:51 Sublimaze 100 Mcg/2 Ml Administered 05/02/19 01:52 Dose 100 mcg .ROUTE .STK-MED ONE Hydralazine HCl 20 mg 05/02/19 00:01 05/02/19 00:15 Apresoline 20 Mg/Ml Inj IV 05/02/19 00:02 20 mg STAT ONE Administration Hydralazine HCl Confirm 05/02/19 00:14 Apresoline 20 Mg/Ml Inj Administered 05/02/19 00:15 Dose 20 mg .ROUTE .STK-MED ONE Hydralazine HCl 20 mg 05/02/19 00:46 05/02/19 01:00 Apresoline 20 Mg/Ml Inj IV 05/02/19 00:47 20 mg STAT ONE Administration Hydralazine HCl Confirm 05/02/19 00:57 Apresoline 20 Mg/Ml Inj Administered 05/02/19 00:58 Dose 20 mg .ROUTE .STK-MED ONE Hydralazine HCl 20 mg 05/02/19 00:58 05/02/19 02:26 Apresoline 20 Mg/Ml Inj IV 05/02/19 00:59 Not Given STAT ONE Lorazepam 0.5 mg 05/02/19 00:58 05/02/19 01:12 Ativan 2 Mg/1 Ml Vial IV 05/02/19 00:59 0.5 mg STAT ONE Administration Lorazepam Confirm 05/02/19 01:09 Ativan 2 Mg/1 Ml Vial Administered 05/02/19 01:10 Dose 2 mg .ROUTE .STK-MED ONE Ondansetron HCl 4 mg 05/02/19 01:51 05/02/19 01:56 Zofran 4 Mg/2 Ml Vial IV 05/02/19 01:52 4 mg STAT ONE Administration Ondansetron HCl Confirm 05/02/19 01:50 Zofran 4 Mg/2 Ml Vial Administered 05/02/19 01:51 Dose 4 mg .ROUTE .STK-MED ONE Lab/Rad Data: Laboratory Result Diagrams 05/01/19 00:44 05/01/19 00:44 Laboratory Results 05/02/19 05/02/19 05/01/19 Range/Units 00:44 00:44 00:44 WBC (4.0-10.5) K/mm3 RBC (4.1-5.4) M/mm3 Hgb (12.0-16.0) gm/dl Hct (35-47) % MCV (78-100) fl MCH (26-32) pg MCHC (32-36) g/dl RDW (11.5-14.0) % Plt Count (150-450) K/mm3 MPV (6-9.5) fl Gran % (36.0-66.0) % Eos # (Auto) (0-0.5) Absolute Lymphs (auto) (1.0-4.6) Absolute Monos (auto) (0.0-1.3) Lymphocytes % (24.0-44.0) % Monocytes % (0.0-12.0) % Eosinophils % (0.00-5.0) % Basophils % (0.0-0.4) % Absolute Granulocytes (1.4-6.9) Basophils # (0-0.4) PT 18.1 H (9.95-12.35) SECONDS INR 1.59 (0.8-3.0) Sodium 143 (137-145) mmol/L Potassium 3.8 (3.5-5.1) mmol/L Chloride 103 (98-107) mmol/L Carbon Dioxide 27 (22-30) mmol/L Anion Gap 16.2 H (5-15) MEQ/L BUN 25 H (7-17) mg/dL Creatinine 0.88 (0.52-1.04) mg/dL Estimated GFR > 60.0 ML/MIN Glucose 118 H (74-106) mg/dL Calcium 9.8 (8.4-10.2) mg/dL Troponin I < 0.012 (0.000-0.034) ng/mL 05/01/19 Range/Units 00:44 WBC 10.1 (4.0-10.5) K/mm3 RBC 4.68 (4.1-5.4) M/mm3 Hgb 14.5 (12.0-16.0) gm/dl Hct 43.7 (35-47) % MCV 93.4 (78-100) fl MCH 31.0 (26-32) pg MCHC 33.2 (32-36) g/dl RDW 14.9 H (11.5-14.0) % Plt Count 422 (150-450) K/mm3 MPV 9.5 (6-9.5) fl Gran % 62.4 (36.0-66.0) % Eos # (Auto) 0.20 (0-0.5) Absolute Lymphs (auto) 2.02 (1.0-4.6) Absolute Monos (auto) 1.53 H (0.0-1.3) Lymphocytes % 20.0 L (24.0-44.0) % Monocytes % 15.1 H (0.0-12.0) % Eosinophils % 2.0 (0.00-5.0) % Basophils % 0.5 (0.0-0.4) % Absolute Granulocytes 6.32 (1.4-6.9) Basophils # 0.05 (0-0.4) PT (9.95-12.35) SECONDS INR (0.8-3.0) Sodium (137-145) mmol/L Potassium (3.5-5.1) mmol/L Chloride (98-107) mmol/L Carbon Dioxide (22-30) mmol/L Anion Gap (5-15) MEQ/L BUN (7-17) mg/dL Creatinine (0.52-1.04) mg/dL Estimated GFR ML/MIN Glucose (74-106) mg/dL Calcium (8.4-10.2) mg/dL Troponin I (0.000-0.034) ng/mL - Progress Progress: improved Progress Note: 05/02/19 03:27 IV NORMAL SALINE 50ML/HR, ZOFRAN 4MG, FENTANYL 50MCG, ATIVAN 0.5MG IV. BLOOD PRESSURE 234/103 IMPROVED AFTER IV HYDRALAZINE 20MG IV X 2 DOSES AND CATAPRES 0.2MG ORALLY AFTER 2 HOURS TO BP 142/80, INSERTION OF RAPID RHINO 9CM POSTERIOR PACKING INFLATION OF BOTH CUFFS 6ML AIR, EPISTAXIS IMPROVE TO A FAINT OOZE. Counseled pt/family regarding: lab results, diagnosis, need for follow-up - Departure Departure Disposition: Home Clinical Impression: EPISTAXIS LEFT NARES Condition: Stable Critical Care Time: No Referrals: TABITHA CURIEL, SHIPPING RECEIVING MANAGER [Primary Care Provider] - Additional Instructions: CONTINUE ALL CURRENT MEDICATIONS DIRECTED EXCEPT AVOID TAKING XARELTO UNTIL Friday05/03/2019. CONTINUE ANTIBIOTIC LEVAQUIN DIRECTED. NORCO 5/325 EVERY 6 HOURS NEEDED FOR FACIAL PAIN DUE TO NASAL PACKING. APPLY AFRIN NASAL SPRAY, 3 DROPS INTO LEFT NASAL PACKING 4 TIMES DAILY FOR 4 DAYS. RETURN TO EMERGENCY ROOM IN 4 DAYS TO HAVE PACKING REMOVED. RETURN TO EMERGENCY ROOM FOR BLEEDING THROUGH PACKING. Prescriptions: Hydrocodone/APAP 5-325 Tab^^^ [[place] 5-325 Tablet^^^] 1 each PO Q6HPRN PRN #12 tablet MDD 4 PRN Reason: Pain
[2019-05-02 00:34] LABS: BASOPHIL % 0.5 % (0.0-0.4); Basophil (Absolute #) 0.05 (0-0.4); Granulocyte Absolute (ANC) 6.32 (1.4-6.9); Granulocytes % 62.4 % (36.0-66.0); Hematocrit 43.7 % (35-47); Hemoglobin 14.5 gm/dl (12.0-16.0); Lymphocyte (Absolute #) 2.02 (1.0-4.6); Mean Cell Volume 93.4 fl (78-100); Mean Corpuscular Hgb Concent. 33.2 g/dl (32-36); Mean Platelet Volume 9.5 fl (6-9.5); Monocyte (Absolute #) 1.53 (0.0-1.3); Monocytes % 15.1 % (0.0-12.0); Platelet Count 422 K/mm3 (150-450); Red Blood Count 4.68 M/mm3 (4.1-5.4); Red Cell Distribution Width 14.9 % (11.5-14.0); White Blood Count 10.1 K/mm3 (4.0-10.5)
[2019-05-02 00:50] LABS: ANION GAP 16.2 MEQ/L (5-15); BLOOD UREA NITROGEN 25 mg/dL (7-17); CHLORIDE 103 mmol/L (98-107); Calcium 9.8 mg/dL (8.4-10.2); Carbon Dioxide 27 mmol/L (22-30); Creatinine 1 0.88 mg/dL (0.52-1.04); Glucose 118 mg/dL (74-106); Potassium 3.8 mmol/L (3.5-5.1); SODIUM 143 mmol/L (137-145)
[2019-05-02] MEDS ORDERED: Ativan 2 MG/1 ML VIAL IV ONE (00:58)
[2019-05-02 01:01] LABS: INR 1.59 (0.8-3.0); PROTIME 18.1 SECONDS (9.95-12.35)
[2019-05-02] MEDS ORDERED: Ativan 2 MG/1 ML VIAL ONE (01:09)
[2019-05-02] MEDS ORDERED: Catapres 0.1 MG PO ONE (01:25)
[2019-05-02] MEDS ORDERED: Catapres 0.1 MG ONE (01:27)
[2019-05-02] MEDS ORDERED: Zofran 4 MG/2 ML VIAL ONE (01:50)
[2019-05-02] MEDS ORDERED: Zofran 4 MG/2 ML VIAL IV ONE (01:51)
[2019-05-02] MEDS ORDERED: SUBLIMAZE 100 MCG/2 ML IV ONE (01:51)
[2019-05-02] MEDS ORDERED: SUBLIMAZE 100 MCG/2 ML ONE (01:51)
[2019-05-02 03:17] VITALS: PULSE 63
[2019-05-02 03:22] VITALS: O2SAT 98
[2019-05-02] MEDS ORDERED: NORCO 5/325 MG PO ONE (03:42)
[2019-05-02] MEDS ORDERED: NORCO 5/325 MG ONE (03:45)
[2019-05-02] MEDS ORDERED: AFRIN NASAL SPRAY NS ONE (03:50)
[2019-05-02 04:21] VITALS: BP 146/83
[2019-05-02] MEDS ORDERED: AFRIN NASAL SPRAY NS SCH (10:00)
== END 2019-05-02 04:19 | disposition home or self-care (01) ==
LOC: ED 23:45
DX: R04.0 Epistaxis (principal); Z79.01 Long term (current) use of anticoagulants; I10 Essential (primary) hypertension; Z79.899 Other long term (current) drug therapy
CPT/HCPCS: 36415; 80048; 84484; 85025; 85610; 93005; 93041; 96360; 96361; 96374; 96375; 96376; 99284; J0360; J2060; J2405; J3010; A9270-GY

== ENCOUNTER 2019-05-06 12:06 | Emergency (ER) | payer MEDICARE, OTHER ==
[2019-05-06 12:15] VITALS: O2SAT 96
--- NOTE | 2019-05-06 12:28 | ERPHSYRPT ---
- History of Present Illness Source: patient Exam Limitations: no limitations Patient Subjective Stated Complaint: Pt was in the ER on Friday morning with a nose bleed and a Rhino rocket was placed in the left nostril, here to have it removed Triage Nursing Assessment: Pt came in to have a rhino rocket removed, no other complaints at this time, pulses normal, hypertensive Physician History: Pt is a 73 y/o female that presented to the ED on Friday with L nasal bleed. Pt was on Xarelto for her A fib. A rhinorocket was placed, and pt was off Xarelto for this period of time. She came to have the rhinorocket removed, and she is scheduled to see her kettle cook tomorrow for an event monitor placement. ENT Location: nose (L nare with rhinorocket) Prearrival Treatment: no prearrival treatment Modifying Factors: Improves With: other (Pt was on Xarelto. Now she is off any anti coagulation) Associated Symptoms: denies symptoms Allergies/Adverse Reactions: No Known Drug Allergies Allergy (Verified 05/06/19 12:15) Home Medications: Amlodipine Besylate 5 mg [Norvasc 5 mg] 5 mg PO DAILY 08/07/15 [History] Carvedilol 6.25 mg [Coreg 6.25 MG] 6.25 mg PO BID 08/07/15 [History] Hydralazine HCl 50 mg PO BID 08/07/15 [History] Lisinopril 40 mg PO DAILY 08/07/15 [History] Potassium Chloride [Klor-Con 8] 8 meq PO TID 08/07/15 [History] Furosemide 40 mg [Lasix 40 MG] 40 mg PO DAILY 01/03/17 [History] Magnesium 250 mg PO DAILY 01/03/17 [History] Rivaroxaban [Xarelto] 15 mg PO DAILY 04/20/19 [History] Hx Tetanus, Diphtheria Vaccination/Date Given: Yes Hx Influenza Vaccination/Date Given: Yes Hx Pneumococcal Vaccination/Date Given: Yes - Review of Systems Constitutional: No Fever, No Chills Ears, Nose, & Throat: Nose Pain, Nose Congestion - Past Medical History Pertinent Past Medical History: Yes Neurological History: Peripheral Neuropathy ENT History: Glaucoma Cardiac History: Arrhythmia, Hypertension Respiratory History: No Pertinent History Endocrine Medical History: No Pertinent History Musculoskeletal History: Other GI Medical History: No Pertinent History History: No Pertinent History Psycho-Social History: No Pertinent History Female Reproductive Disorders: Breast Cancer Other Medical History: R shoulder replacement 2017 - Past Surgical History Past Surgical History: Yes Neuro Surgical History: No Pertinent History Cardiac: Cardiac Catheterization Respiratory: No Pertinent History Gastrointestinal: Other Genitourinary: No Pertinent History Musculoskeletal: Joint Replacement, Other Female Surgical History: Hysterectomy, Lumpectomy Other Surgical History: colonoscopy 2000,left breast lumpectomy,right foot neuroma,SHOULDER REPLACEMENT 2016 - Social History Smoking Status: Never smoker Exposure to second hand smoke: Yes Drug Use: none Patient Lives Alone: No - Nursing Vital Signs Nursing Vital Signs: Initial Vital Signs Temperature 97.7 F 05/06/19 12:09 Pulse Rate 62 05/06/19 12:09 Blood Pressure 154/74 05/06/19 12:09 O2 Sat by Pulse Oximetry 96 05/06/19 12:09 Pain Scale Pain Intensity 0 - Physical Exam General Appearance: no apparent distress, alert Eye Exam: bilateral eye: PERRL, EOMI Ear Exam: bilateral ear: auricle normal, canal normal Nasal Exam: normal inspection (a rhinorocket with two inflating area.) Throat Exam: pharynx normal, moist mucus membranes, No tonsillar exudate Neck Exam: supple SpO2: 96 - Progress Progress: improved Progress Note: 05/06/19 12:30 Rhinorocket removal. I removed the air from the pockets with a syringe, and removed the rhinorocket. Pt tolerated procedure well, and there was no bleeding. Pt was instructed to f/u with her kettle cook. Will see patient in: office Counseled pt/family regarding: need for follow-up - Departure Departure Disposition: Home Clinical Impression: Epistaxis Condition: Stable Critical Care Time: No Referrals: TABITHA CURIEL NP [Primary Care Provider] - Plan of Treatment: F/U with Culinary Arts Teacher
[2019-05-06 13:06] VITALS: BP 119/79; PULSE 54
== END 2019-05-06 13:07 | disposition home or self-care (01) ==
LOC: ED 12:06
DX: R04.0 Epistaxis (principal); Z79.899 Other long term (current) drug therapy; I10 Essential (primary) hypertension; Z85.3 Personal history of malignant neoplasm of breast; G62.9 Polyneuropathy, unspecified
CPT/HCPCS: 99283

== ENCOUNTER 2019-12-13 05:09 | Observation (INO) | payer MEDICARE, OTHER ==
--- NOTE | 2019-12-13 05:35 | ERPHSYRPT ---
- History of Present Illness Time Seen by Provider: 12/13/19 05:29 Historian: patient, family Exam Limitations: no limitations Physician History: pt is a 73 yr old female with onset of chest pain just earlier this night; she has been told that her EKG shows prior NM for several years but has had no CABG or Stent or prior symptoms of NM or CAD; SHe has a cough the past 2 days without shortness of breath; no N or V; she has hx afib and hptn treated Timing/Duration: today Activities at Onset: none Quality: dullness, fullness, pressure Location: substernal Chest Pain Radiation: no radiation Severity of Pain-Max: moderate Severity of Pain-Current: moderate Modifying Factors: Improves With: nothing Associated Symptoms: palpitations, cough Prior Chest Pain/Cardiac Workup: no prior chest pain, recently seen/treated Nitro Today/Relief: 0.4 mg x 1, provided by ED, complete relief (actually almost complete relief down to dull relief ) Aspirin Treatment Today: 81 mg x 4, provided by ED Allergies/Adverse Reactions: No Known Drug Allergies Allergy (Verified 12/13/19 05:42) Home Medications: Amlodipine Besylate 5 mg [Norvasc 5 mg] 5 mg PO DAILY 08/07/15 [History] Carvedilol 6.25 mg [Coreg 6.25 MG] 6.25 mg PO BID 08/07/15 [History] Hydralazine HCl 50 mg PO BID 08/07/15 [History] Potassium Chloride [Klor-Con 8] 8 meq PO TID 08/07/15 [History] lisinopriL [Lisinopril] 40 mg PO DAILY 08/07/15 [History] Furosemide 40 mg [Lasix 40 MG] 40 mg PO DAILY 01/03/17 [History] Magnesium 250 mg PO DAILY 01/03/17 [History] Rivaroxaban [Xarelto] 15 mg PO DAILY 04/20/19 [History] Hx Tetanus, Diphtheria Vaccination/Date Given: Yes Hx Influenza Vaccination/Date Given: Yes Hx Pneumococcal Vaccination/Date Given: Yes - Review of Systems Constitutional: No Fever, No Chills Eyes: No Symptoms Ears, Nose, & Throat: No Symptoms Respiratory: Cough, No Dyspnea Cardiac: Chest Pain, No Edema, No Syncope Abdominal/Gastrointestinal: No Abdominal Pain, No Nausea, No Vomiting, No Diarrhea Genitourinary Symptoms: No Dysuria Musculoskeletal: No Back Pain, No Neck Pain Skin: No Rash Neurological: No Dizziness, No Focal Weakness, No Sensory Changes Psychological: No Symptoms Endocrine: No Symptoms Hematologic/Lymphatic: No Symptoms Immunological/Allergic: No Symptoms All Other Systems: Reviewed and Negative - Past Medical History Pertinent Past Medical History: Yes Neurological History: Peripheral Neuropathy ENT History: Glaucoma Cardiac History: Arrhythmia, Hypertension Respiratory History: No Pertinent History Endocrine Medical History: No Pertinent History Musculoskeletal History: Other GI Medical History: No Pertinent History History: No Pertinent History Psycho-Social History: No Pertinent History Female Reproductive Disorders: Breast Cancer Other Medical History: R shoulder replacement 2017 - Past Surgical History Past Surgical History: Yes Neuro Surgical History: No Pertinent History Cardiac: Cardiac Catheterization Respiratory: No Pertinent History Gastrointestinal: Other Genitourinary: No Pertinent History Musculoskeletal: Joint Replacement, Other Female Surgical History: Hysterectomy, Lumpectomy Other Surgical History: colonoscopy 2000,left breast lumpectomy,right foot neuroma,SHOULDER REPLACEMENT 2016 - Social History Smoking Status: Never smoker Exposure to second hand smoke: Yes Drug Use: none Patient Lives Alone: No - Nursing Vital Signs Nursing Vital Signs: Initial Vital Signs Temperature 97.7 F 12/13/19 05:10 Pulse Rate 70 12/13/19 05:10 Respiratory Rate 18 12/13/19 05:10 Blood Pressure 183/102 12/13/19 05:10 O2 Sat by Pulse Oximetry 96 12/13/19 05:10 Pain Scale Pain Intensity 6 - Physical Exam General Appearance: no apparent distress, alert Eye Exam: PERRL/EOMI, eyes nml inspection Ears, Nose, Throat Exam: normal ENT inspection, moist mucous membranes Neck Exam: normal inspection, non-tender, supple, full range of motion Respiratory Exam: normal breath sounds, lungs clear, No respiratory distress Cardiovascular Exam: regular rate/rhythm, normal heart sounds Gastrointestinal/Abdomen Exam: soft, No tenderness, No mass Pelvic Exam: deferred Rectal Exam: deferred Back Exam: normal inspection, No CVA tenderness, No vertebral tenderness Extremity Exam: normal inspection, normal range of motion Neurologic Exam: alert, oriented x 3, cooperative, normal mood/affect, sensation nml, No motor deficits Skin Exam: normal color, warm, dry - Course Nursing assessment & vital signs reviewed: Yes EKG Interpreted by Me: Sinus Rhythm, NORMAL AXIS, Right Bundle Branch Block, Non -specific ST Changes, Other (LAFB) - Radiology Exams Chest X-ray Interpretation: Reviewed by me, Infiltrates (RLL infiltrate/atelectasis) Ordered Tests: Active Orders 24 hr Category Date Time Status Pulse Oximetry (ED) STAT Care 12/13/19 05:37 Active CHEST 1 VIEW (PORTABLE) Stat Exams 12/13/19 05:38 Taken CBC W DIFF Stat Lab 12/13/19 05:20 Completed CMP Stat Lab 12/13/19 05:20 Completed LIPASE Stat Lab 12/13/19 05:20 Completed Lactic Acid Stat Lab 12/13/19 05:54 Completed NT PRO BNP Stat Lab 12/13/19 05:20 Completed TROPONIN Q3H Lab 12/13/19 05:20 Completed TROPONIN Q3H Lab 12/13/19 08:45 Ordered TROPONIN Q3H Lab 12/13/19 11:45 Ordered TROPONIN Q3H Lab 12/13/19 14:45 Ordered TROPONIN Q3H Lab 12/13/19 17:45 Ordered UA W/RFX UR CULTURE Stat Lab 12/13/19 05:37 Uncollected Respiratory Therapy Assessment DAILY RT 12/13/19 06:33 Active Medication Summary Generic Name Dose Route Start Last Admin Trade Name Freq PRN Reason Stop Dose Admin Sodium Chloride 1,000 mls @ 50 mls/hr 12/13/19 05:45 12/13/19 05:44 Sodium Chloride 0.9% 1000 Ml IV 01/12/20 05:44 50 mls/hr .Q20H JER Administration Discontinued Medications Generic Name Dose Route Start Last Admin Trade Name Freq PRN Reason Stop Dose Admin Albuterol/Ipratropium 3 ml 12/13/19 06:12 12/13/19 06:30 Duoneb 0.5-3 Mg/3 Ml Neb IH 12/13/19 06:13 3 ml STAT ONE Administration Albuterol/Ipratropium Confirm 12/13/19 06:27 Duoneb 0.5-3 Mg/3 Ml Neb Administered 12/13/19 06:28 Dose 3 ml IH .STK-MED ONE Aspirin 324 mg 12/13/19 05:37 12/13/19 05:44 Baby Aspirin 81 Mg Chew PO 12/13/19 05:38 324 mg STAT ONE Administration Ceftriaxone Sodium/Dextrose 1 g in 50 mls @ 100 mls/hr 12/13/19 06:00 06:47 Rocephin 1 Gm-D5w 50 Ml Bag IV 12/13/19 06:29 Infused STAT STA Infusion Ceftriaxone Sodium/Dextrose Confirm 12/13/19 06:05 Rocephin 1 Gm-D5w 50 Ml Bag Administered 12/13/19 06:06 Dose 1 g in 50 mls @ ud IV .STK-MED ONE Nitroglycerin 0.4 mg 12/13/19 05:37 12/13/19 05:44 Nitrostat 0.4 Mg (Ed) SL 12/13/19 05:38 0.4 mg STAT ONE Administration Lab/Rad Data: Laboratory Result Diagrams 12/13/19 05:20 12/13/19 05:20 Laboratory Results 12/13/19 12/13/19 12/13/19 Range/Units 05:54 05:20 05:20 WBC (4.0-10.5) K/mm3 RBC (4.1-5.4) M/mm3 Hgb (12.0-16.0) gm/dl Hct (35-47) % MCV (78-100) fl MCH (26-32) pg MCHC (32-36) g/dl RDW (11.5-14.0) % Plt Count (150-450) K/mm3 MPV (7.5-11.0) fl Gran % (36.0-66.0) % Eos # (Auto) (0-0.5) Absolute Lymphs (auto) (1.0-4.6) Absolute Monos (auto) (0.0-1.3) Lymphocytes % (24.0-44.0) % Monocytes % (0.0-12.0) % Eosinophils % (0.00-5.0) % Basophils % (0.0-0.4) % Absolute Granulocytes (1.4-6.9) Basophils # (0-0.4) Sodium 143 (137-145) mmol/L Potassium 3.9 (3.5-5.1) mmol/L Chloride 106 (98-107) mmol/L Carbon Dioxide 26 (22-30) mmol/L Anion Gap 15.1 H (5-15) MEQ/L BUN 32 H (7-17) mg/dL Creatinine 0.80 (0.52-1.04) mg/dL Estimated GFR > 60.0 ML/MIN Glucose 122 H (74-106) mg/dL Lactic Acid 1.7 (0.4-2.0) Calcium 10.0 (8.4-10.2) mg/dL Total Bilirubin 0.50 (0.2-1.3) mg/dL AST 27 (14-36) U/L ALT 19 (0-35) U/L Alkaline Phosphatase 95 (38-126) U/L Troponin I < 0.012 (0.000-0.034) ng/mL NT-Pro-B Natriuret Pep 243 (0-1800) pg/mL Serum Total Protein 8.6 H (6.3-8.2) g/dL Albumin 4.7 (3.5-5.0) g/dL Lipase 141 (23-300) U/L 12/13/19 Range/Units 05:20 WBC 13.1 H (4.0-10.5) K/mm3 RBC 5.01 (4.1-5.4) M/mm3 Hgb 15.4 (12.0-16.0) gm/dl Hct 46.0 (35-47) % MCV 91.8 (78-100) fl MCH 30.7 (26-32) pg MCHC 33.5 (32-36) g/dl RDW 15.0 H (11.5-14.0) % Plt Count 404 (150-450) K/mm3 MPV 10.2 (7.5-11.0) fl Gran % 70.3 H (36.0-66.0) % Eos # (Auto) 0.19 (0-0.5) Absolute Lymphs (auto) 2.04 (1.0-4.6) Absolute Monos (auto) 1.58 H (0.0-1.3) Lymphocytes % 15.6 L (24.0-44.0) % Monocytes % 12.1 H (0.0-12.0) % Eosinophils % 1.5 (0.00-5.0) % Basophils % 0.5 (0.0-0.4) % Absolute Granulocytes 9.18 H (1.4-6.9) Basophils # 0.06 (0-0.4) Sodium (137-145) mmol/L Potassium (3.5-5.1) mmol/L Chloride (98-107) mmol/L Carbon Dioxide (22-30) mmol/L Anion Gap (5-15) MEQ/L BUN (7-17) mg/dL Creatinine (0.52-1.04) mg/dL Estimated GFR ML/MIN Glucose (74-106) mg/dL Lactic Acid (0.4-2.0) Calcium (8.4-10.2) mg/dL Total Bilirubin (0.2-1.3) mg/dL AST (14-36) U/L ALT (0-35) U/L Alkaline Phosphatase (38-126) U/L Troponin I (0.000-0.034) ng/mL NT-Pro-B Natriuret Pep (0-1800) pg/mL Serum Total Protein (6.3-8.2) g/dL Albumin (3.5-5.0) g/dL Lipase (23-300) U/L - Progress Progress: improved, re-examined Air Movement: good Progress Note: 12/13/19 05:59 NTG almost completely relieved CP down to dull ache and BP decreased to 130s; 12/13/19 06:15 12/13/19 06:34 discussed with pt family and Dr. Armstrong covering for Dr. Edwards and all agree best to place pt on obs and continue to check for cardiac and treat pneumonia Blood Culture(s) Obtained: No Antibiotics given: Yes Discussed with : Radha Will see patient in: hospital (observation) (dr. armstrong for Dr. Edwards ) Counseled pt/family regarding: lab results, diagnosis, need for follow-up, rad results - Departure Departure Disposition: Observation Clinical Impression: Chest pain, RLL pneumonia, Essential hypertension Condition: Good Critical Care Time: No Referrals: CARLIN EDWARDS DO [Primary Care Provider] -
[2019-12-13] MEDS ORDERED: BABY ASPIRIN 81 MG CHEW PO ONE (05:37)
[2019-12-13] MEDS ORDERED: Nitrostat 0.4 MG (ED) SL ONE (05:37)
[2019-12-13] MEDS: Sodium Chloride 0.9% 1000 ML 1,000 ML IV SCH (05:44)
[2019-12-13 05:56] LABS: Absolute Neutrophil Ct (ANC) 9.18 (1.4-6.9); BASOPHIL % 0.5 % (0.0-0.4); Basophil (Absolute #) 0.06 (0-0.4); Eosinophil % 1.5 % (0.00-5.0); Eosinophil (Absolute #) 0.19 (0-0.5); Hemoglobin 15.4 gm/dl (12.0-16.0); Lymphocyte (Absolute #) 2.04 (1.0-4.6); Lymphocytes % 15.6 % (24.0-44.0); Mean Cell Volume 91.8 fl (78-100); Mean Corpuscular Hemoglobin 30.7 pg (26-32); Mean Corpuscular Hgb Concent. 33.5 g/dl (32-36); Mean Platelet Volume 10.2 fl (7.5-11.0); Monocyte (Absolute #) 1.58 (0.0-1.3); Monocytes % 12.1 % (0.0-12.0); Neutrophil % 70.3 % (36.0-66.0); Platelet Count 404 K/mm3 (150-450); Red Blood Count 5.01 M/mm3 (4.1-5.4); White Blood Count 13.1 K/mm3 (4.0-10.5)
[2019-12-13] MEDS ORDERED: ROCEPHIN 1 Gm-D5w 50 ml Bag** 1 G/50 ML IVPB IV STA (06:00)
[2019-12-13] MEDS ORDERED: ROCEPHIN 1 Gm-D5w 50 ml Bag** 1 G/50 ML IVPB IV ONE (06:05)
[2019-12-13 06:11] LABS: ALBUMIN 4.7 g/dL (3.5-5.0); ALKALINE PHOSPHATASE 95 U/L (38-126); ANION GAP 15.1 MEQ/L (5-15); BLOOD UREA NITROGEN 32 mg/dL (7-17); CHLORIDE 106 mmol/L (98-107); Carbon Dioxide 26 mmol/L (22-30); Glucose 122 mg/dL (74-106); LIPASE 141 U/L (23-300); NT PRO BNP 243 pg/mL (0-1800); Potassium 3.9 mmol/L (3.5-5.1); SGOT/AST 27 U/L (14-36); SGPT/ALT 19 U/L (0-35); SODIUM 143 mmol/L (137-145); Total Protein 8.6 g/dL (6.3-8.2)
[2019-12-13] MEDS ORDERED: DUONEB 0.5-3 MG/3 ml Neb IH ONE ×2 (06:12→06:27)
[2019-12-13 06:55] LABS: INFLUENZA A NEGATIVE (NEGATIVE); INFLUENZA B NEGATIVE (NEGATIVE); RESPIRATORY SYNCTIAL VIRUS NEGATIVE (Negative)
[2019-12-13 07:07] LABS: Slide Review 1 YES
[2019-12-13] MEDS ORDERED: MAALOX ES 30 ML UNIT DOSE PO PRN (07:48)
[2019-12-13] MEDS ORDERED: MILK OF MAGNESIA 30 ML PO PRN (07:48)
[2019-12-13] MEDS ORDERED: MORPHINE SULFATE 2 MG INJ IV PRN (07:48)
[2019-12-13] MEDS ORDERED: TYLENOL 325 MG PO PRN (07:48)
[2019-12-13] MEDS ORDERED: Zofran 4 MG/2 ML VIAL IV PRN (07:48)
[2019-12-13] MEDS ORDERED: HUMULIN R SQ PRN (07:48)
[2019-12-13] MEDS ORDERED: Senokot-S Tablet PO PRN (07:48)
--- NOTE | 2019-12-13 09:45 | XRAY ---
Indication: Chest pain. URI. Comparison: November 26, 2019. Portable chest demonstrates minimal bilateral fibrosis/scarring without focal infiltrate, consolidation, or large effusion. Heart is not enlarged for AP portable technique. Bony thorax intact again with osteopenia, degenerative changes, and right shoulder arthroplasty. Impression: Nonacute chest with chronic features.
[2019-12-13] MEDS: DUONEB 0.5-3 MG/3 ml Neb IH SCH ×4 (10:00→22:34)
--- NOTE | 2019-12-13 13:17 | CONS ---
CONSULT DATE: 12/13/2019 BRIEF HISTORY: This is a 73 year-old female who was seen because of chest pains. Her symptoms started this morning when she started to have chest pain she described as sharp, sometimes pressure unrelated to effort. Earlier she did have a respiratory tract infection mostly involving the sinuses and had some postnasal drainage. The pain was described as somewhat severe not associated to diaphoresis or nausea. She was given aspirin and nitroglycerin which afforded some relief. At the time of examination she was already chest pain free. Her troponin I's are normal. Prior to this she denied any exertional type of chest pain. She has been previously evaluated for chest pain way back in 2013 and pharmacologic stress at that time was negative. CARDIAC RISK FACTORS: Negative for diabetes. Positive for hypertension. She has hyperlipidemia. She is a nonsmoker. 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 RESPIRATORY: Recent cough but no hemoptysis. GI: No nausea. No vomiting. : Negative for dysuria or hematuria. PERIPHERAL VASCULAR: No history of DVT or claudication. HEMATOLOGY: No blood dyscrasia. ENDOCRINE: No thyroid disorder. PAST SURGICAL HISTORY: Hysterectomy. Lumpectomy. Three foot surgeries. MEDICATIONS: Her home medications are amlodipine, aspirin, carvedilol, Furosemide, hydralazine, lisinopril, magnesium, potassium. SOCIAL HISTORY: She is . She has no significant alcohol intake. PHYSICAL EXAMINATION: Her blood pressure is 180/103, heart rate 62, respirations about 16. GENERAL: The patient is an elderly female who is alert, oriented, who is now chest pain free. HEENT: Unremarkable. NECK: No significant JVD or carotid bruit. CHEST: The breath sounds are harsh. There is some rhonchi and wheezing particularly on the left side. CARDIAC: Heart tones are within normal. The rhythm is regular. There is no audible gallop. There is a grade 2/6 mid systolic murmur. ABDOMEN: Soft with normal bowel sounds. EXTREMITIES: No significant edema. Palpable distal pulses but somewhat diminished. LAB DATA AND DIAGNOSTIC TESTS: The serial troponin I are normal. CBC shows hemoglobin of 15.4 and white blood cell 13.1, PLT 404,000. Troponin I is 0.012. Creatinine 0.8. Serum electrolytes are normal. The EKG shows sinus rhythm with right bundle branch block this is unchanged from EKG done on 10/12/2018. IMPRESSION: 1) In essence the patient presented with chest pain with negative troponin I. The chest pain is somewhat atypical for angina, this may still be related to a respiratory tract infection as she does have significant adventitious sounds. We will repeat the troponin I and also BMP. Echocardiogram will be obtained. After myocardial infarction is ruled out would suggest a pharmacologic stress test as she has cardiac risk factors. 2) Hypertension. Her blood pressure is in hypertensive range, will resume her antihypertensive medications and to be titrated to get a better controlled blood pressure. 3) Hyperlipidemia. Continue with statin therapy. I will follow up with you.
[2019-12-13] MEDS ORDERED: NON-FORMULARY ITEM (Potassium Chloride [Klor-Con 8] 8 MEQ) PO SCH (15:00)
[2019-12-13] MEDS: Lasix 40 MG PO SCH (15:32)
[2019-12-13] MEDS: MAG-OX 400 PO SCH (15:33)
[2019-12-13] MEDS: NORVASC 5 MG PO SCH (15:34)
[2019-12-13] MEDS: Zestril 20 MG PO SCH (15:34)
[2019-12-13] MEDS: Klor Con 10 MEQ PO SCH ×2 (15:35→21:08)
[2019-12-13] MEDS: Apresoline 25 MG TABLET PO SCH ×2 (15:35→21:08)
[2019-12-13 17:35] LABS: ANION GAP 12.1 MEQ/L (5-15); BLOOD UREA NITROGEN 28 mg/dL (7-17); CHLORIDE 106 mmol/L (98-107); Calcium 9.6 mg/dL (8.4-10.2); Carbon Dioxide 27 mmol/L (22-30); Glucose 117 mg/dL (74-106); Potassium 3.8 mmol/L (3.5-5.1); SODIUM 141 mmol/L (137-145)
[2019-12-13 17:45] LABS: TROPONIN < 0.012 ng/mL (0.000-0.034)
[2019-12-13] MEDS: Tussionex Pennkinetic Susp PO PRN (21:09)
[2019-12-13] MEDS: COREG 12.5 MG PO SCH (21:09)
--- NOTE | 2019-12-13 21:10 | PCM.HP ---
History of Present Illness - Chief Complaint Chief Complaint: CHest pain, RLL Pneumonia Date: 12/13/19 History of Present Illness: is a 73 year old female admitted to hospital for chest pain and suspected pneumonia. Patient reports that she started with a cough early friday morning. She had not been ill with any other URI symptoms prior and denies having a fever. Patient reports early friday morning around 2 am she started having a coughing attack that then led to chest pain. Patient reports the chest pain persisted and she came to ER. Patient reports that following administration of nitro she had complete chest pain relief. Patient reports she does not have a script for nitro and has never required it before. Patient does have high blood pressure. She sees Dr Wu from cardiology. She denies any chest pain at this time. She reports occasional cough but no other symptoms at this time. - Review of Systems Constitutional: No Fever, No Chills Eyes: No Symptoms Ears, Nose, & Throat: No Symptoms Respiratory: Cough, No Short Of Breath, No Wheezing Cardiac: Chest Pain (resolved), No Edema, No Palpitations, No Syncope Abdominal/Gastrointestinal: No Abdominal Pain, No Nausea, No Vomiting, No Diarrhea, No Constipation Genitourinary Symptoms: No Dysuria Musculoskeletal: No Symptoms Skin: No Rash Neurological: No Headache Psychological: No Alcohol Abuse, No Drug Abuse Hematologic/Lymphatic: No Anemia, No Blood Clots Medications & Allergies Home Medications: Home Medication List Amlodipine Besylate 5 mg [Norvasc 5 mg] 5 mg PO DAILY 08/07/15 [History Confirmed 12/13/19] Carvedilol 6.25 mg [Coreg 6.25 MG] 12.5 mg PO BID 08/07/15 [History Confirmed 12/13/19] Hydralazine HCl 50 mg PO TID 08/07/15 [History Confirmed 12/13/19] Potassium Chloride [Klor-Con 8] 8 meq PO TID 08/07/15 [History Confirmed ] lisinopriL [Lisinopril] 40 mg PO DAILY 08/07/15 [History Confirmed 12/13/19] Furosemide 40 mg [Lasix 40 MG] 40 mg PO DAILY 01/03/17 [History Confirmed 12/13/19] Magnesium 250 mg PO DAILY 01/03/17 [History Confirmed 12/13/19] Aspirin EC 81 mg [Ecotrin 81 mg] 81 mg PO UD 12/13/19 [History Confirmed 12/13/19] Allergies/Adverse Reactions: Allergies Allergy/AdvReac Type Severity Reaction Status Date / Time No Known Drug Allergies Allergy Verified 12/13/19 05:42 - Past Medical History Past Medical History: Yes Neurological History: Peripheral Neuropathy ENT History: Glaucoma Cardiac History: Arrhythmia, Hypertension Respiratory History: No Pertinent History Endocrine Medical History: No Pertinent History Musculoskelatal History: Other GI Medical History: No Pertinent History History: No Pertinent History Pyscho-Social History: No Pertinent History Reproductive Disorders: Breast Cancer Comment: R shoulder replacement 2017 - Female History Are you now?: No - Past Surgical History Past Surgical History: Yes Neuro Surgical History: No Pertinent History Cardiac History: Cardiac Catheterization Respiratory Surgery: No Pertinent History GI Surgical History: Other Genitourinary Surgical Hx: No Pertinent History Musculskeletal Surgical Hx: Joint Replacement, Other Female Surgical History: Hysterectomy, Lumpectomy Other Surgical History: colonoscopy 2000,left breast lumpectomy,right foot neuroma,SHOULDER REPLACEMENT 2016 - Social History Smoking Status: Never smoker Exposure to second hand smoke: Yes (past) Alcohol: None Drug Use: none - Physical Exam Vital Signs: Vital Signs - 24 hr Temp Pulse Pulse Resp BP Pulse Ox 12/13/19 19:38 98.7 F 87 20 163/75 92 L 12/13/19 16:00 98.9 F 69 18 133/72 92 L 12/13/19 14:16 62 18 94 L 12/13/19 14:00 94 L 12/13/19 12:00 98.2 F 62 17 176/76 94 L 12/13/19 10:03 68 18 96 12/13/19 08:37 52 L 18 95 12/13/19 08:29 98 F 57 L 18 185/83 95 12/13/19 08:20 98 F 57 L 18 185/83 95 12/13/19 06:54 60 17 159/93 94 L 12/13/19 06:33 57 L 19 94 L 12/13/19 06:19 59 L 18 160/98 95 12/13/19 05:41 94 L 12/13/19 05:37 65 18 135/82 94 L 12/13/19 05:10 97.7 F 64 70 18 183/102 96 General Appearance: no apparent distress Neurologic Exam: alert, oriented x 3, cooperative, normal mood/affect Eye Exam: eyes nml inspection, No scleral icterus Ears, Nose, Throat Exam: normal ENT inspection Neck Exam: JVD, No carotid bruit Respiratory Exam: normal breath sounds, lungs clear, No crackles/rales, No rhonchi, No wheezing Cardiovascular Exam: regular rate/rhythm, normal heart sounds, No murmur, No friction rub, No gallop Gastrointestinal/Abdomen Exam: soft, normal bowel sounds, No tenderness, No distention Pelvic Exam: not done Rectal Exam: not done Back Exam: normal inspection Extremity Exam: normal inspection, No pedal edema, No swelling Skin Exam: normal color, warm, dry, No rash Results - Labs Lab/Micro Results: Lab Results-Last 24 Hours 12/13/19 12/13/19 12/13/19 Range/Units 05:20 05:20 05:20 WBC 13.1 H (4.0-10.5) K/mm3 RBC 5.01 (4.1-5.4) M/mm3 Hgb 15.4 (12.0-16.0) gm/dl Hct 46.0 (35-47) % MCV 91.8 (78-100) fl MCH 30.7 (26-32) pg MCHC 33.5 (32-36) g/dl RDW 15.0 H (11.5-14.0) % Plt Count 404 (150-450) K/mm3 MPV 10.2 (7.5-11.0) fl Gran % 70.3 H (36.0-66.0) % Eos # (Auto) 0.19 (0-0.5) Absolute Lymphs (auto) 2.04 (1.0-4.6) Absolute Monos (auto) 1.58 H (0.0-1.3) Lymphocytes % 15.6 L (24.0-44.0) % Monocytes % 12.1 H (0.0-12.0) % Eosinophils % 1.5 (0.00-5.0) % Basophils % 0.5 (0.0-0.4) % Absolute Granulocytes 9.18 H (1.4-6.9) Basophils # 0.06 (0-0.4) Smear Path Review Pending Sodium 143 (137-145) mmol/L Potassium 3.9 (3.5-5.1) mmol/L Chloride 106 (98-107) mmol/L Carbon Dioxide 26 (22-30) mmol/L Anion Gap 15.1 H (5-15) MEQ/L BUN 32 H (7-17) mg/dL Creatinine 0.80 (0.52-1.04) mg/dL Estimated GFR > 60.0 ML/MIN Glucose 122 H (74-106) mg/dL Lactic Acid (0.4-2.0) Calcium 10.0 (8.4-10.2) mg/dL Total Bilirubin 0.50 (0.2-1.3) mg/dL AST 27 (14-36) U/L ALT 19 (0-35) U/L Alkaline Phosphatase 95 (38-126) U/L Troponin I < 0.012 (0.000-0.034) ng/mL NT-Pro-B Natriuret Pep 243 (0-1800) pg/mL Serum Total Protein 8.6 H (6.3-8.2) g/dL Albumin 4.7 (3.5-5.0) g/dL Lipase 141 (23-300) U/L Influenza Type A Ag (NEGATIVE) Influenza Type B Ag (NEGATIVE) RSV (PCR) (Negative) Slides for Path Review YES 12/13/19 12/13/19 12/13/19 Range/Units 05:54 06:10 09:21 WBC (4.0-10.5) K/mm3 RBC (4.1-5.4) M/mm3 Hgb (12.0-16.0) gm/dl Hct (35-47) % MCV (78-100) fl MCH (26-32) pg MCHC (32-36) g/dl RDW (11.5-14.0) % Plt Count (150-450) K/mm3 MPV (7.5-11.0) fl Gran % (36.0-66.0) % Eos # (Auto) (0-0.5) Absolute Lymphs (auto) (1.0-4.6) Absolute Monos (auto) (0.0-1.3) Lymphocytes % (24.0-44.0) % Monocytes % (0.0-12.0) % Eosinophils % (0.00-5.0) % Basophils % (0.0-0.4) % Absolute Granulocytes (1.4-6.9) Basophils # (0-0.4) Smear Path Review Sodium (137-145) mmol/L Potassium (3.5-5.1) mmol/L Chloride (98-107) mmol/L Carbon Dioxide (22-30) mmol/L Anion Gap (5-15) MEQ/L BUN (7-17) mg/dL Creatinine (0.52-1.04) mg/dL Estimated GFR ML/MIN Glucose (74-106) mg/dL Lactic Acid 1.7 (0.4-2.0) Calcium (8.4-10.2) mg/dL Total Bilirubin (0.2-1.3) mg/dL AST (14-36) U/L ALT (0-35) U/L Alkaline Phosphatase (38-126) U/L Troponin I < 0.012 (0.000-0.034) ng/mL NT-Pro-B Natriuret Pep (0-1800) pg/mL Serum Total Protein (6.3-8.2) g/dL Albumin (3.5-5.0) g/dL Lipase (23-300) U/L Influenza Type A Ag NEGATIVE (NEGATIVE) Influenza Type B Ag NEGATIVE (NEGATIVE) RSV (PCR) NEGATIVE (Negative) Slides for Path Review 12/13/19 12/13/19 Range/Units 12:15 17:04 WBC (4.0-10.5) K/mm3 RBC (4.1-5.4) M/mm3 Hgb (12.0-16.0) gm/dl Hct (35-47) % MCV (78-100) fl MCH (26-32) pg MCHC (32-36) g/dl RDW (11.5-14.0) % Plt Count (150-450) K/mm3 MPV (7.5-11.0) fl Gran % (36.0-66.0) % Eos # (Auto) (0-0.5) Absolute Lymphs (auto) (1.0-4.6) Absolute Monos (auto) (0.0-1.3) Lymphocytes % (24.0-44.0) % Monocytes % (0.0-12.0) % Eosinophils % (0.00-5.0) % Basophils % (0.0-0.4) % Absolute Granulocytes (1.4-6.9) Basophils # (0-0.4) Smear Path Review Sodium 141 (137-145) mmol/L Potassium 3.8 (3.5-5.1) mmol/L Chloride 106 (98-107) mmol/L Carbon Dioxide 27 (22-30) mmol/L Anion Gap 12.1 (5-15) MEQ/L BUN 28 H (7-17) mg/dL Creatinine 0.70 (0.52-1.04) mg/dL Estimated GFR > 60.0 ML/MIN Glucose 117 H (74-106) mg/dL Lactic Acid (0.4-2.0) Calcium 9.6 (8.4-10.2) mg/dL Total Bilirubin (0.2-1.3) mg/dL AST (14-36) U/L ALT (0-35) U/L Alkaline Phosphatase (38-126) U/L Troponin I < 0.012 < 0.012 (0.000-0.034) ng/mL NT-Pro-B Natriuret Pep (0-1800) pg/mL Serum Total Protein (6.3-8.2) g/dL Albumin (3.5-5.0) g/dL Lipase (23-300) U/L Influenza Type A Ag (NEGATIVE) Influenza Type B Ag (NEGATIVE) RSV (PCR) (Negative) Slides for Path Review - Radiology Impressions Radiology Exams & Impressions: Radiology Procedures Category Date Time Status CHEST 1 VIEW (PORTABLE) Stat Exams 12/13/19 05:38 Completed ECHO W/2D AND DOPPLER [US] Routine Exams 12/13/19 13:00 Taken - Other Procedures and Tests Respiratory Therapy 12/13/19 06:33 Respiratory Therapy Assessment DAILY 12/13/19 10:03 Peak Expiratory Flow Rate ONCE 12/14/19 05:00 EKG ONCE 12/15/19 05:00 EKG ONCE 12/16/19 05:00 EKG ONCE Assessment/Plan (1) Chest pain Current Visit: Yes Status: Acute Assessment & Plan: Initially my plan was to complete ACS rule out with x3 troponins and x2 EKG. Patient has been pain free since administration of nitro. Cardiology was consulted by ER physician and recommended patient get an echo prior to DC. Patient can likely be discharged tomorrow with plans to follow up with Cardiologists for possible stress test and or cardiac cath. Patient may benefit from nitro script as outpatient. Noted on chest xray aorta appeared large in caliber and could be evaluated with CTA. Patient was also started on antibiotics in ER for possible pneumonia. I did not continue these antibiotics as I did not feel that there was a pneumonia noted on cxr. Radiologists read did not note a pneumonia. Patient did have a elevated wbc was afebrile had did have a cough. Could be a viral cough. Code(s): R07.9 - CHEST PAIN, UNSPECIFIED (2) Essential hypertension Current Visit: Yes Status: Acute Assessment & Plan: Patient is on multiple medications for HTN. It does not appear to be well controlled as it has been elevated since admission. Patient is on multiple bp meds. She may require dose adjustment prior to DC. Her pulse has been mildly conrad as well. Code(s): I10 - ESSENTIAL (PRIMARY) HYPERTENSION (3) Paroxysmal a-fib Current Visit: No Status: Acute Assessment & Plan: Patient had RRR on physical exam and is on rate control bp meds. Code(s): I48.0 - PAROXYSMAL ATRIAL FIBRILLATION
[2019-12-13] MEDS ORDERED: Coreg 6.25 MG PO SCH (22:00)
[2019-12-14] MEDS: Sodium Chloride 0.9% 1000 ML 1,000 ML IV SCH ×2 (01:50→21:36)
[2019-12-14] MEDS: DUONEB 0.5-3 MG/3 ml Neb IH SCH ×6 (03:28→23:04)
[2019-12-14 05:17] LABS: Risk Ratio 3.9
[2019-12-14] MEDS: ROCEPHIN 1 Gm-D5w 50 ml Bag** 1 G/50 ML IVPB IV SCH (08:33)
[2019-12-14] MEDS: MAG-OX 400 PO SCH (08:33)
[2019-12-14] MEDS: COREG 12.5 MG PO SCH ×2 (08:34→21:35)
[2019-12-14] MEDS: Klor Con 10 MEQ PO SCH ×3 (08:34→21:36)
[2019-12-14] MEDS: Lasix 40 MG PO SCH (08:34)
[2019-12-14] MEDS: Zestril 20 MG PO SCH (08:34)
[2019-12-14] MEDS: Apresoline 25 MG TABLET PO SCH ×3 (08:34→21:35)
[2019-12-14] MEDS: NORVASC 5 MG PO SCH (08:35)
[2019-12-14] MEDS ORDERED: Ecotrin 325 MG PO SCH (10:00)
[2019-12-14] MEDS ORDERED: NON-FORMULARY ITEM (Lisinopril [Lisinopril] 40 MG) PO SCH (10:00)
[2019-12-14] MEDS ORDERED: NON-FORMULARY ITEM (Magnesium [Magnesium] 250 MG) PO SCH (10:00)
[2019-12-14] MEDS ORDERED: ECOTRIN 81 MG PO SCH (10:00)
--- NOTE | 2019-12-14 14:00 | PCM.NOTE ---
Date and Time: 12/14/19 8536 Subjective Assessment: Patient complains of coughing fits but not able to bring up mucus,some releif after nebulizer tx. Chest pain has resolved but does have pain in ribs on right and mid chest when coughing.Patient has hx left breast cancer mastectomy 2013. Dr Cabrera,parking enforcer consult appreciated. ECHO results are pending.Troponins not elevated. Objective Exam General Appearance: mild distress (couging) Neurologic Exam: alert, oriented x 3, cooperative Skin Exam: normal color, warm, dry Eye Exam: eyes nml inspection Ears, Nose, Throat Exam: normal ENT inspection Neck Exam: normal inspection Respiratory Exam: rhonchi, wheezing (left mid lung, anterior and posterior), other Cardiovascular Exam: regular rate/rhythm Gastrointestinal/Abdomen Exam: soft Extremity Exam: normal inspection (no pitting edema) OBJECTIVE DATA Vital Signs: Vital Signs - 24 hr Temp Pulse Resp BP Pulse Ox 12/14/19 12:00 98.5 F 70 18 125/76 98 12/14/19 10:32 68 16 97 12/14/19 07:15 98.7 F 70 18 145/67 97 12/14/19 06:50 80 16 93 L 12/14/19 06:00 93 L 12/14/19 04:00 99.3 F 74 16 142/74 93 L 12/14/19 03:30 81 18 94 L 12/14/19 02:00 94 L 12/14/19 00:00 98.9 F 81 16 105/69 94 L 12/13/19 22:35 86 18 93 L 12/13/19 19:38 98.7 F 87 20 163/75 92 L 12/13/19 16:00 98.9 F 69 18 133/72 92 L 12/13/19 14:16 62 18 94 L 12/13/19 14:00 94 L Pain Assessment - Last Documented Pain Intensity 0 Pain Scale Used 0-10 Pain Scale Intake and Output: Intake & Output 12/12/19 12/13/19 12/14/19 12/15/19 11:59 11:59 11:59 11:59 Intake Total 240 2423 380 Output Total 4500 Balance 240 -2077 380 Weight 90.5 kg 89.7 kg Lab Results: Lab Results-Last 24 Hours 12/13/19 12/14/19 Range/Units 17:04 04:30 Sodium 141 (137-145) mmol/L Potassium 3.8 (3.5-5.1) mmol/L Chloride 106 (98-107) mmol/L Carbon Dioxide 27 (22-30) mmol/L Anion Gap 12.1 (5-15) MEQ/L BUN 28 H (7-17) mg/dL Creatinine 0.70 (0.52-1.04) mg/dL Estimated GFR > 60.0 ML/MIN Glucose 117 H (74-106) mg/dL Calcium 9.6 (8.4-10.2) mg/dL Troponin I < 0.012 (0.000-0.034) ng/mL Triglycerides 74 (30-150) mg/dL Cholesterol 185 (50-200) mg/dL LDL Cholesterol 121 H (30-100) mg/dL HDL Cholesterol 47 (40-60) mg/dL Heart Disease Risk Ratio 3.9 Radiology Exams: Radiology Procedures Category Date Time Status CHEST 1 VIEW (PORTABLE) Stat Exams 12/13/19 05:38 Completed CHEST WITH CONTRAST [CT] Routine Exams 12/14/19 13:48 Ordered ECHO W/2D AND DOPPLER [US] Routine Exams 12/13/19 13:00 Taken Multi-Disciplinary Progress Notes: Multi-Disciplinary Progress Notes 12/14/19 10:09 Case Management Note by Esme Godinez PATIENT CONTINUES TO DENY ANY NEEDS REGARDING DC AT THIS TIME Initialized on 12/14/19 10:09 - END OF NOTE Assessment/Plan (1) Pneumonitis Current Visit: Yes Status: Acute Assessment & Plan: see chest CT Code(s): J18.9 - PNEUMONIA, UNSPECIFIED ORGANISM (2) Hx of breast cancer Current Visit: Yes Status: Acute Assessment & Plan: S/P left mastectomy 2013 Code(s): Z85.3 - PERSONAL HISTORY OF MALIGNANT NEOPLASM OF BREAST (3) Cough Current Visit: Yes Status: Acute Assessment & Plan: start Solumedrol ,mucinex..,continue duoneb treatments. Code(s): R05 - COUGH
[2019-12-14] MEDS: Tussionex Pennkinetic Susp PO PRN (14:16)
[2019-12-14] MEDS: solu-MEDROL 125 MG IV SCH ×2 (15:07→21:36)
--- NOTE | 2019-12-14 16:24 | XRAY ---
Indication: Wheezing and cough. History left breast cancer. Multiple contiguous axial images obtained through the chest using 80 cc SUV 370 contrast. Comparison: September 15, 2011. Lungs are inflated with now minimal patchy [id number]-like opacities bilaterally favoring pneumonitis. Minimal inferior lingula subsegmental atelectasis/scarring. No suspicious pulmonary mass, consolidation, or effusion. Heart is borderline enlarged. Aorta is normal in course and caliber. No pathologic mediastinal/hilar lymphadenopathy. New small hiatal hernia. Bony thorax intact with mild osteopenia and minimal/mild degenerative changes throughout the spine. There has been interval right shoulder arthroplasty. No pathologic axillary lymphadenopathy. 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 Impression: 1. New minimal patchy [id number]-like opacities bilaterally favoring pneumonitis. 2. New borderline cardiomegaly and small hiatal hernia.
[2019-12-14] MEDS: MUCINEX DM 600/30MG PO SCH (18:52)
[2019-12-15] MEDS: DUONEB 0.5-3 MG/3 ml Neb IH SCH ×3 (03:34→10:22)
[2019-12-15] MEDS: solu-MEDROL 125 MG IV SCH (06:15)
[2019-12-15] MEDS: MUCINEX DM 600/30MG PO SCH (06:15)
[2019-12-15] MEDS: ROCEPHIN 1 Gm-D5w 50 ml Bag** 1 G/50 ML IVPB IV SCH (09:11)
[2019-12-15 09:13] LABS: Absolute Neutrophil Ct (ANC) 7.34 (1.4-6.9); BASOPHIL % 0.1 % (0.0-0.4); Basophil (Absolute #) 0.01 (0-0.4); Eosinophil (Absolute #) 0 (0-0.5); Hematocrit 44.5 % (35-47); Hemoglobin 14.5 gm/dl (12.0-16.0); Lymphocytes % 17.5 % (24.0-44.0); Mean Cell Volume 91.6 fl (78-100); Mean Corpuscular Hemoglobin 29.8 pg (26-32); Mean Corpuscular Hgb Concent. 32.6 g/dl (32-36); Mean Platelet Volume 9.7 fl (7.5-11.0); Monocytes % 2.2 % (0.0-12.0); Neutrophil % 80.2 % (36.0-66.0); Platelet Count 339 K/mm3 (150-450); Red Blood Count 4.86 M/mm3 (4.1-5.4); Red Cell Distribution Width 15.1 % (11.5-14.0); White Blood Count 9.2 K/mm3 (4.0-10.5)
[2019-12-15] MEDS: COREG 12.5 MG PO SCH (09:13)
[2019-12-15] MEDS: Klor Con 10 MEQ PO SCH (09:13)
[2019-12-15] MEDS: Zestril 20 MG PO SCH (09:13)
[2019-12-15] MEDS: MAG-OX 400 PO SCH (09:13)
[2019-12-15] MEDS: Lasix 40 MG PO SCH (09:14)
[2019-12-15] MEDS: NORVASC 5 MG PO SCH (09:14)
[2019-12-15] MEDS: Apresoline 25 MG TABLET PO SCH (09:14)
[2019-12-15 09:37] LABS: ALBUMIN 4.2 g/dL (3.5-5.0); ALKALINE PHOSPHATASE 79 U/L (38-126); BLOOD UREA NITROGEN 25 mg/dL (7-17); CHLORIDE 104 mmol/L (98-107); Calcium 9.3 mg/dL (8.4-10.2); Carbon Dioxide 23 mmol/L (22-30); Creatinine 1 0.63 mg/dL (0.52-1.04); Glucose 247 mg/dL (74-106); Potassium 3.8 mmol/L (3.5-5.1); SGOT/AST 32 U/L (14-36); SODIUM 140 mmol/L (137-145); Total Protein 7.8 g/dL (6.3-8.2)
[2019-12-15 09:54] LABS: SGPT/ALT 24 U/L (0-35)
--- NOTE | 2019-12-15 12:09 | PCM.DS ---
Discharge Summary Date of Admission: 12/13/19 07:41 Admitting Physician: EDWAR ROPER MD Consults: Consults on Case 12/13/19 07:48 Consult Cardiology ROUTINE Primary Care Provider: CARLIN MACIAS DO Allergies Allergies No Known Drug Allergies Allergy (Verified 12/13/19 05:42) Hospital Summary - Hospital Course Hospital Course: Patient presented to ER with shortness of breath and chest pain and admitted to observation. Troponin was not elevated. Dr Cabrera,Type Mapper, consulted and ECHO was done but no formal reading report yet.Chest pain resolved but nonproductive cough and coughing spells continued . CXR was not read as pneumonia ,positive for COPD . Chest CT was positive for bilateral pneumonitis. Patient responded to IV solumedrol and duoneb txs and IV Rocephin. She is a nonsmoker .She has hyperglycemia since starting Solumedrol but no Hx DM. Positive Hx Breast Cancer [address] was done with contrast to rule out mets and it was negative for this. - Vitals & Intake/Output Vital Signs: Vital Signs Temperature 97.8 F 12/15/19 08:00 Pulse Rate 68 12/15/19 10:22 Respiratory Rate 14 12/15/19 10:22 Blood Pressure 142/76 12/15/19 08:00 O2 Sat by Pulse Oximetry 96 12/15/19 10:22 Intake & Output: Intake & Output 12/12/19 12/13/19 12/14/19 12/15/19 11:59 11:59 11:59 11:59 Intake Total 240 2423 2731 Output Total 4500 2000 Balance 240 -2077 731 Weight 90.5 kg 89.7 kg 90.8 kg - Lab Result Diagrams: 12/15/19 09:00 12/15/19 09:00 Lab Results-Last 24 Hrs: Lab Results-Last 24 Hours 12/13/19 12/15/19 12/15/19 Range/Units 05:20 09:00 09:00 WBC 9.2 (4.0-10.5) K/mm3 RBC 4.86 (4.1-5.4) M/mm3 Hgb 14.5 (12.0-16.0) gm/dl Hct 44.5 (35-47) % MCV 91.6 (78-100) fl MCH 29.8 (26-32) pg MCHC 32.6 (32-36) g/dl RDW 15.1 H (11.5-14.0) % Plt Count 339 (150-450) K/mm3 MPV 9.7 (7.5-11.0) fl Gran % 80.2 H (36.0-66.0) % Eos # (Auto) 0 (0-0.5) Absolute Lymphs (auto) 1.60 (1.0-4.6) Absolute Monos (auto) 0.20 (0.0-1.3) Lymphocytes % 17.5 L (24.0-44.0) % Monocytes % 2.2 (0.0-12.0) % Eosinophils % 0.0 (0.00-5.0) % Basophils % 0.1 (0.0-0.4) % Absolute Granulocytes 7.34 H (1.4-6.9) Basophils # 0.01 (0-0.4) Smear Path Review Sodium 140 (137-145) mmol/L Potassium 3.8 (3.5-5.1) mmol/L Chloride 104 (98-107) mmol/L Carbon Dioxide 23 (22-30) mmol/L Anion Gap 17.0 H (5-15) MEQ/L BUN 25 H (7-17) mg/dL Creatinine 0.63 (0.52-1.04) mg/dL Estimated GFR > 60.0 ML/MIN Glucose 247 H (74-106) mg/dL Calcium 9.3 (8.4-10.2) mg/dL Total Bilirubin 0.40 (0.2-1.3) mg/dL AST 32 (14-36) U/L ALT 24 (0-35) U/L Alkaline Phosphatase 79 (38-126) U/L Serum Total Protein 7.8 (6.3-8.2) g/dL Albumin 4.2 (3.5-5.0) g/dL - Radiology Exams Ordered Rad Exams-Entire Visit: Radiology Procedures Category Date Time Status CHEST WITH CONTRAST [CT] Routine Exams 12/14/19 13:48 Completed ECHO W/2D AND DOPPLER [US] Routine Exams 12/13/19 13:00 Taken - Procedures and Test Procedures and Tests throughout Hospitalization: Therapy Orders & Screens 12/13/19 06:33 Respiratory Therapy Assessment DAILY Comment: 12/13/19 07:48 EKG Q8HX2,QAMX3,PRN Comment: 12/13/19 10:03 Peak Expiratory Flow Rate ONCE Comment: Reason For Exam: Diagnosis: CHest pain, RLL Pneumonia 12/13/19 12:00 EKG ONCE Comment: Diagnosis: CHest pain, RLL Pneumonia 12/14/19 05:00 EKG ONCE Comment: Diagnosis: CHest pain, RLL Pneumonia 12/15/19 05:00 EKG ONCE Comment: Diagnosis: CHest pain, RLL Pneumonia 12/16/19 05:00 EKG ONCE Comment: Diagnosis: CHest pain, RLL Pneumonia Discharge Exam Neurologic Exam: alert, oriented x 3, cooperative Eye Exam: eyes nml inspection Ears, Nose, Throat Exam: normal ENT inspection Neck Exam: normal inspection Respiratory Exam: crackles/rales, rhonchi (fine exp wheeze with ronchi right ant chest improved with deep cough) Final Diagnosis/Problem List - Final Discharge Diagnosis/Problem (1) Pneumonitis Current Visit: Yes Status: Acute Assessment & Plan: improved Code(s): J18.9 - PNEUMONIA, UNSPECIFIED ORGANISM (2) Hx of breast cancer Current Visit: Yes Status: Acute Assessment & Plan: Chest CT with contrast negative for mets. Code(s): Z85.3 - PERSONAL HISTORY OF MALIGNANT NEOPLASM OF BREAST (3) Cough Current Visit: Yes Status: Acute Assessment & Plan: improved Code(s): R05 - COUGH (4) Hyperglycemia, drug-induced Current Visit: Yes Status: Acute Assessment & Plan: Discussed elevated sugar due to steroids and will be on oral at home for 1 week only.Patient will improve diet,no concentrated sweets,A1c is pending. Code(s): R73.9 - HYPERGLYCEMIA, UNSPECIFIED; T50.905A - ADVERSE EFFECT OF UNSP DRUG/MEDS/BIOL SUBST, INIT (5) Chest pain Current Visit: Yes Status: Resolved Assessment & Plan: respiratory etiology but will follow up as outpatient with Type Mapper. Code(s): R07.9 - CHEST PAIN, UNSPECIFIED (6) COPD (chronic obstructive pulmonary disease) Current Visit: Yes Status: Chronic Assessment & Plan: nonsmoker,start neb tx at home - Discharge Condition: Good Prescriptions: New Albuterol/Ipratropium 3ml Neb* [DUONEB 0.5-3 MG/3 ml Neb] 3 ml IH Q6-8HPRN #60 ampul.neb Methylprednisolone Packet [Medrol Dosepack] 4 mg PO UD #1 packet Cefdinir [Omnicef 300 mg] 300 mg PO BID #14 capsule Continue Potassium Chloride [Klor-Con 8] 8 meq PO TID Hydralazine HCl 50 mg PO TID Amlodipine Besylate 5 mg [Norvasc 5 mg] 5 mg PO DAILY Carvedilol 6.25 mg [Coreg 6.25 MG] 12.5 mg PO BID lisinopriL [Lisinopril] 40 mg PO DAILY Furosemide 40 mg [Lasix 40 MG] 40 mg PO DAILY Magnesium 250 mg PO DAILY Aspirin EC 81 mg [Ecotrin 81 mg] 81 mg PO UD Additional Instructions: Rx for Nebulzer hand written . Follow up with: CARLIN MACIAS DO [Primary Care Provider] - 1 Week
[2019-12-15 13:32] VITALS: BP 137/64; PULSE 62; O2SAT 92
--- NOTE | 2019-12-20 13:22 | ECHO ---
Transthoracic echocardiographic examination and color Doppler was done on 12/13/2019. INDICATION: Chest pain. IMPRESSION: 1) NO REGIONAL WALL MOTION ABNORMALITY. ESTIMATED GLOBAL LEFT VENTRICULAR EJECTION FRACTION BETWEEN 50 TO 60%. 2) TRACE MITRAL REGURGITATION. 3) TRACE TRICUSPID REGURGITATION. RIGHT VENTRICULAR SYSTOLIC PRESSURE OF 31 MM OF MERCURY. 4) LEFT ATRIAL ENDLARGEMENT. 5) LEFT VENTRICULAR DIASTOLIC DYSFUNCTION. 6) SCLEROTIC AORTIC VALVE WITH A PEAK TRANSAORTIC GRADIENT OF 11 MM OF MERCURY. The left ventricle is visualized partially but demonstrated adequate motion. Estimated global left ventricular ejection fraction between 50 and 60%. The left ventricular thickness appears to be normal. The mitral valve is seen and this opens adequately. There is trace mitral regurgitation. Tissue Doppler study of the lateral mitral annulus suggestive of left ventricular diastolic dysfunction. The left atrium is mildly enlarged. The aortic valve is sclerotic. The peak transaortic gradient is 11 mm of Mercury. The right side chambers are normal. There is trace tricuspid regurgitation. The right ventricular systolic pressure of 31 mm of Mercury.
== END 2019-12-15 13:20 | disposition home or self-care (01) ==
LOC: ED 05:09 → MED SURG 07:41
PROVIDERS: ADMIT Family Medicine; ATTEND Family Medicine
DX: J18.9 Pneumonia, unspecified organism (principal); R07.9 Chest pain, unspecified; J44.9 Chronic obstructive pulmonary disease, unspecified; R07.81 Pleurodynia; R06.02 Shortness of breath; E78.5 Hyperlipidemia, unspecified; I48.0 Paroxysmal atrial fibrillation; R73.9 Hyperglycemia, unspecified; T38.0X5A Adverse effect of glucocorticoids and synthetic analogues, initial encounter; Z85.3 Personal history of malignant neoplasm of breast; Z79.899 Other long term (current) drug therapy
CPT/HCPCS: 36415; 71045; 71260; 80048; 80053; 80061; 83036; 83605; 83690; 83721; 83880; 84484; 85025; 87631; 93005; 93268; 93306; 94150; 94640; 94760; 96360; 96361; 96365; 99285; G0378; J0696; J2930; A9270-GY

== ENCOUNTER 2020-10-24 16:19 | Emergency (ER) | payer MEDICARE, OTHER ==
[2020-10-24] MEDS ORDERED: PROTONIX 40 MG IV IV ONE ×2 (16:42→16:48)
[2020-10-24] MEDS ORDERED: Reglan 10 MG/2 ML IV ONE (16:42)
[2020-10-24] MEDS ORDERED: GI COCKTAIL 45 ML (Maalox/Lidocaine) PO ONE (16:42)
[2020-10-24] MEDS ORDERED: MORPHINE SULFATE 4 MG INJ IV ONE (16:42)
[2020-10-24] MEDS ORDERED: Sodium Chloride 0.9% 1000 ML 1,000 ML IV STA (16:42)
[2020-10-24] MEDS ORDERED: MORPHINE SULFATE 4 MG INJ ONE (16:48)
--- NOTE | 2020-10-24 16:48 | ERPHSYRPT ---
- History of Present Illness Historian: patient Exam Limitations: no limitations Patient Subjective Stated Complaint: Pt states that she woke up this am with pain in her epigastric region that radiates below both breasts, no appetite Triage Nursing Assessment: Pt was brought to the ER by her , hypertensive, rates epigastric pain as 7/10, no appetite, denies N&V, denies bowel problems, pulses normal, skin n/w/d Timing/Duration: today, gradual onset, worse Activities at Onset: rest Quality: cramping, dullness Abdominal Pain Onset Location: epigastric Pain Radiation: RUQ, LUQ Severity of Pain-Max: moderate Severity of Pain-Current: moderate Modifying Factors: Improves With: nothing Associated Symptoms: loss of appetite, nausea, No shortness of breath Previous symptoms: no prior history Hx Tetanus, Diphtheria Vaccination/Date Given: Yes Hx Influenza Vaccination/Date Given: Yes Hx Pneumococcal Vaccination/Date Given: Yes <DANA PINTO - Last Filed: 10/24/20 18:48> <JOHNNA ARMENTA - Last Filed: 10/24/20 20:48> - History of Present Illness Time Seen by Provider: 10/24/20 16:23 Physician History: 74 years old female with history of hypertension, hyperlipidemia presented in the ER with chief complaint of epigastric pain since morning. Patient report dull cramping bubble feeling in the epigastric region with radiation to bilateral upper quadrants without any significant aggravating or relieving factors. Has nausea but no vomiting. Denies any chest pain palpitations or shortness of breath. Denies any fever chills or cough. Denies any sick contact. No diarrhea or constipation. (DANA PINTO) Allergies/Adverse Reactions: No Known Drug Allergies Allergy (Verified 10/24/20 16:37) Home Medications: Amlodipine Besylate 5 mg [Norvasc 5 mg] 5 mg PO DAILY 08/07/15 [History] Carvedilol 6.25 mg [Coreg 6.25 MG] 12.5 mg PO BID 08/07/15 [History] Hydralazine HCl 50 mg PO TID 08/07/15 [History] Potassium Chloride [Klor-Con 8] 8 meq PO TID 08/07/15 [History] lisinopriL [Lisinopril] 40 mg PO DAILY 08/07/15 [History] Magnesium 250 mg PO DAILY 01/03/17 [History] Aspirin EC 81 mg [Ecotrin 81 mg] 81 mg PO UD 12/13/19 [History] Travel Risk - International Travel Have you traveled outside of the country in past 3 weeks: No - Coronavirus Screening Are you exhibiting any of the following symptoms?: No Close contact with a COVID-19 positive Pt in past 14-21 Days: No <DANA PINTO - Last Filed: 10/24/20 18:48> - Review of Systems Constitutional: No Symptoms Eyes: No Symptoms Ears, Nose, & Throat: No Symptoms Respiratory: No Symptoms Cardiac: No Symptoms Abdominal/Gastrointestinal: Abdominal Pain, Nausea Genitourinary Symptoms: No Symptoms Musculoskeletal: No Symptoms Skin: No Symptoms Neurological: No Symptoms Psychological: No Symptoms Endocrine: No Symptoms Hematologic/Lymphatic: No Symptoms Immunological/Allergic: No Symptoms <DANA PINTO - Last Filed: 10/24/20 18:48> - Past Medical History Pertinent Past Medical History: Yes Neurological History: Peripheral Neuropathy ENT History: Glaucoma Cardiac History: Arrhythmia, Hypertension Respiratory History: COPD Endocrine Medical History: No Pertinent History Musculoskeletal History: Other GI Medical History: No Pertinent History History: No Pertinent History Psycho-Social History: No Pertinent History Female Reproductive Disorders: Breast Cancer Other Medical History: R shoulder replacement 2017 - Past Surgical History Past Surgical History: Yes Neuro Surgical History: No Pertinent History Cardiac: Cardiac Catheterization Respiratory: No Pertinent History Gastrointestinal: Other Genitourinary: No Pertinent History Musculoskeletal: Joint Replacement, Other Female Surgical History: Hysterectomy, Lumpectomy Other Surgical History: colonoscopy 2000,left breast lumpectomy,right foot neuroma,SHOULDER REPLACEMENT 2017 - Social History Smoking Status: Never smoker Exposure to second hand smoke: No (past) Drug Use: none Patient Lives Alone: No - Female History Hx Now: No <DANA PINTO - Last Filed: 10/24/20 18:48> - Physical Exam General Appearance: no apparent distress, alert Eye Exam: eyes nml inspection Ears, Nose, Throat Exam: normal ENT inspection, pharynx normal Neck Exam: normal inspection, supple, full range of motion Respiratory Exam: normal breath sounds, lungs clear Cardiovascular Exam: normal heart sounds, bradycardia Gastrointestinal/Abdomen Exam: soft, normal bowel sounds, tenderness (epigastric) Back Exam: normal inspection, normal range of motion, No CVA tenderness Extremity Exam: normal inspection, normal range of motion Neurologic Exam: alert, oriented x 3, cooperative Skin Exam: normal color SpO2 Interpretation: normal SpO2: 97 O2 Delivery: Room Air <DANA PINTO - Last Filed: 10/24/20 18:48> - Nursing Vital Signs Nursing Vital Signs: Initial Vital Signs Temperature 96.2 F 10/24/20 16:28 Pulse Rate 54 L 10/24/20 16:28 Blood Pressure 187/92 10/24/20 16:28 O2 Sat by Pulse Oximetry 97 10/24/20 16:28 Pain Scale Pain Intensity 0 - Course Nursing assessment & vital signs reviewed: Yes EKG Interpreted by Me: RATE (50), Sinus Ousmane, NORMAL AXIS, Other (T wave inversion and anteroseptal leads. Nonspecific intraventricular conduction delay.) <DANA PINTO - Last Filed: 10/24/20 18:48> - CT Exams Abdomen/Pelvis CT Interpretation: Tele-radiologist Report (Mild fluid distended small bowel loops with fluid leveling, ileus versus enteritis. Incidental diverticulosis and bilateral renal cyst.) <JOHNNA ARMENTA - Last Filed: 10/24/20 20:48> Ordered Tests: Active Orders 24 hr Category Date Time Status EKG-ER Only STAT Care 10/24/20 16:42 Active IV Insertion STAT Care 10/24/20 16:42 Active NPO (ED) STAT Care 10/24/20 16:42 Active ABDOMEN AND PELVIS W CONTRAST [CT] Stat Exams 10/24/20 16:44 Taken CHEST 1 VIEW (PORTABLE) Stat Exams 10/24/20 16:42 Taken BNP [NT PRO BNP] Stat Lab 10/24/20 18:55 Completed CBC W DIFF Stat Lab 10/24/20 16:45 Completed CMP Stat Lab 10/24/20 16:45 Completed LIPASE Stat Lab 10/24/20 16:45 Completed TROPONIN Q3H Lab 10/24/20 16:45 Completed TROPONIN Q3H Lab 10/24/20 19:31 Completed TROPONIN Q3H Lab 10/24/20 22:45 Ordered TROPONIN Q3H Lab 10/25/20 01:45 Ordered TROPONIN Q3H Lab 10/25/20 04:45 Ordered UA W/RFX UR CULTURE Stat Lab 10/24/20 18:15 Completed Medication Summary Discontinued Medications Generic Name Dose Route Start Last Admin Trade Name Mariajose PRN Reason Stop Dose Admin Al Hydrox/Mg Hydrox/Simethicone Confirm 10/24/20 16:50 Maalox Es 30 Ml Unit Dose Administered 10/24/20 16:51 Dose 30 ml .ROUTE .STK-MED ONE Sodium Chloride 1,000 mls @ 499 mls/hr 10/24/20 16:42 10/24/20 18:59 Sodium Chloride 0.9% 1000 Ml IV 10/24/20 18:42 Infused .Q2H1M STA Infusion Sodium Chloride Confirm 10/24/20 16:50 Sodium Chloride 0.9% 1000 Ml Administered 10/24/20 16:51 Dose 1,000 mls @ ud .ROUTE .STK-MED ONE Lidocaine HCl Confirm 10/24/20 16:49 Xylocaine Hcl Viscous * Administered 10/24/20 16:50 Dose 15 ml .ROUTE .STK-MED ONE Magnesium Hydroxide 45 ml 10/24/20 16:42 10/24/20 16:56 Gi Cocktail 45 Ml (Maalox/Lidocaine) PO 10/24/20 16:43 45 ml STAT ONE Administration Metoclopramide HCl 10 mg 10/24/20 16:42 10/24/20 16:55 Reglan 10 Mg/2 Ml IV 10/24/20 16:43 10 mg STAT ONE Administration Metoclopramide HCl Confirm 10/24/20 16:49 Reglan 10 Mg/2 Ml Administered 10/24/20 16:50 Dose 10 mg .ROUTE .STK-MED ONE Morphine Sulfate 4 mg 10/24/20 16:42 10/24/20 16:56 Morphine Sulfate 4 Mg Inj IV 10/24/20 16:43 4 mg STAT ONE Administration Morphine Sulfate Confirm 10/24/20 16:48 Morphine Sulfate 4 Mg Inj Administered 10/24/20 16:49 Dose 4 mg .ROUTE .STK-MED ONE Pantoprazole Sodium 40 mg 10/24/20 16:42 10/24/20 16:55 Protonix 40 Mg Iv IV 10/24/20 16:43 40 mg STAT ONE Administration Pantoprazole Sodium Confirm 10/24/20 16:48 Protonix 40 Mg Iv Administered 10/24/20 16:49 Dose 40 mg IV .STK-MED ONE Lab/Rad Data: Laboratory Result Diagrams 10/24/20 16:45 10/24/20 16:45 Laboratory Results 10/24/20 10/24/20 10/24/20 Range/Units 19:31 18:55 18:15 WBC (4.0-10.5) K/mm3 RBC (4.1-5.4) M/mm3 Hgb (12.0-16.0) gm/dl Hct (35-47) % MCV (78-100) fl MCH (26-32) pg MCHC (32-36) g/dl RDW (11.5-14.0) % Plt Count (150-450) K/mm3 MPV (7.5-11.0) fl Gran % (36.0-66.0) % Eos # (Auto) (0-0.5) Absolute Lymphs (auto) (1.0-4.6) Absolute Monos (auto) (0.0-1.3) Lymphocytes % (24.0-44.0) % Monocytes % (0.0-12.0) % Eosinophils % (0.00-5.0) % Basophils % (0.0-0.4) % Absolute Granulocytes (1.4-6.9) Basophils # (0-0.4) Sodium (137-145) mmol/L Potassium (3.5-5.1) mmol/L Chloride (98-107) mmol/L Carbon Dioxide (22-30) mmol/L Anion Gap (5-15) MEQ/L BUN (7-17) mg/dL Creatinine (0.52-1.04) mg/dL Estimated GFR ML/MIN Glucose (74-106) mg/dL Calcium (8.4-10.2) mg/dL Total Bilirubin (0.2-1.3) mg/dL AST (14-36) U/L ALT (0-35) U/L Alkaline Phosphatase (38-126) U/L Troponin I < 0.012 (0.000-0.034) ng/mL NT-Pro-B Natriuret Pep 438 (0-1800) pg/mL Serum Total Protein (6.3-8.2) g/dL Albumin (3.5-5.0) g/dL Lipase (23-300) U/L Urine Color YELLOW (YELLOW) Urine Appearance CLEAR (CLEAR) Urine pH 7.0 (5-6) Ur Specific [place] 1.021 (1.005-1.025) Urine Protein NEGATIVE (Negative) Urine Ketones NEGATIVE (NEGATIVE) Urine Blood NEGATIVE (0-5) Nicolas/ul Urine Nitrite NEGATIVE (NEGATIVE) Urine Bilirubin NEGATIVE (NEGATIVE) Urine Urobilinogen NEGATIVE (0-1) mg/dL Ur Leukocyte Esterase NEGATIVE (NEGATIVE) Urine WBC (Auto) NONE (0-5) /HPF Urine RBC (Auto) NONE (0-2) /HPF U Epithel Cells (Auto) NONE (FEW) /HPF Urine Bacteria (Auto) NONE (NEGATIVE) /HPF Urine Culture Reflexed NO (NO) Urine Glucose NEGATIVE (NEGATIVE) mg/dL 10/24/20 10/24/20 10/24/20 Range/Units 16:45 16:45 16:45 WBC 11.4 H (4.0-10.5) K/mm3 RBC 4.99 (4.1-5.4) M/mm3 Hgb 14.9 (12.0-16.0) gm/dl Hct 46.1 (35-47) % MCV 92.4 (78-100) fl MCH 29.9 (26-32) pg MCHC 32.3 (32-36) g/dl RDW 14.6 H (11.5-14.0) % Plt Count 411 (150-450) K/mm3 MPV 9.8 (7.5-11.0) fl Gran % 71.3 H (36.0-66.0) % Eos # (Auto) 0.14 (0-0.5) Absolute Lymphs (auto) 2.18 (1.0-4.6) Absolute Monos (auto) 0.90 (0.0-1.3) Lymphocytes % 19.2 L (24.0-44.0) % Monocytes % 7.9 (0.0-12.0) % Eosinophils % 1.2 (0.00-5.0) % Basophils % 0.4 (0.0-0.4) % Absolute Granulocytes 8.11 H (1.4-6.9) Basophils # 0.05 (0-0.4) Sodium 138 (137-145) mmol/L Potassium 3.9 (3.5-5.1) mmol/L Chloride 101 (98-107) mmol/L Carbon Dioxide 30 (22-30) mmol/L Anion Gap 10.5 (5-15) MEQ/L BUN 28 H (7-17) mg/dL Creatinine 0.82 (0.52-1.04) mg/dL Estimated GFR > 60.0 ML/MIN Glucose 142 H (74-106) mg/dL Calcium 10.0 (8.4-10.2) mg/dL Total Bilirubin 0.70 (0.2-1.3) mg/dL AST 30 (14-36) U/L ALT 18 (0-35) U/L Alkaline Phosphatase 103 (38-126) U/L Troponin I < 0.012 (0.000-0.034) ng/mL NT-Pro-B Natriuret Pep (0-1800) pg/mL Serum Total Protein 8.4 H (6.3-8.2) g/dL Albumin 4.5 (3.5-5.0) g/dL Lipase 161 (23-300) U/L Urine Color (YELLOW) Urine Appearance (CLEAR) Urine pH (5-6) Ur Specific [place] (1.005-1.025) Urine Protein (Negative) Urine Ketones (NEGATIVE) Urine Blood (0-5) Nicolas/ul Urine Nitrite (NEGATIVE) Urine Bilirubin (NEGATIVE) Urine Urobilinogen (0-1) mg/dL Ur Leukocyte Esterase (NEGATIVE) Urine WBC (Auto) (0-5) /HPF Urine RBC (Auto) (0-2) /HPF U Epithel Cells (Auto) (FEW) /HPF Urine Bacteria (Auto) (NEGATIVE) /HPF Urine Culture Reflexed (NO) Urine Glucose (NEGATIVE) mg/dL - Progress Progress: improved Counseled pt/family regarding: lab results, diagnosis, need for follow-up, rad results <JOHNNA ARMENTA - Last Filed: 10/24/20 20:48> - Progress Progress Note: 10/24/20 20:[address] Armenta at approximately [address] Armenta advised to follow- up on pending CAT scan and second troponin. CAT scan reveals ileus/enteritis. Patient feels much better. Abdominal pain significantly improved. Patient has no chest pain or shortness of breath. No nausea no vomiting no diaphoresis 2 troponins negative. Patient requesting discharge. Vital stable. Patient voices no other complaints at this time. Will discharge patient home. We will forward a prescription for Protonix to our patient's pharmacy. Patient agrees to follow-up with her primary care doctor within 48 hours for reevaluation. 10/24/20 20:48 (JOHNNA ARMENTA) <DANA PINTO - Last Filed: 10/24/20 18:48> - Departure Departure Disposition: Home Critical Care Time: No <JOHNNA ARMENTA - Last Filed: 10/24/20 20:48> - Departure Clinical Impression: Abdominal pain, Enteritis, Diverticulosis, Renal cyst Condition: Stable Referrals: CARLIN MACIAS DO [Primary Care Provider] - Additional Instructions: Discharge/Care Plan TENA BAILEY was seen on 10/24/20 in the Emergency Room. The patient was counseled regarding Diagnosis,Lab results, Imaging studies, need for follow up and when to return to the Emergency Room. Prescriptions given: Discharge Note I have spoken with the patient and/or caregivers. I have explained the patient's condition, diagnosis and treatment plan based on the information available to me at this time. I have answered the patient's and/or caregiver's questions and addressed any concerns. The patient and/or caregivers have as good understanding of the patient's diagnosis, condition and treatment plan as can be expected at this point. The vital signs have been stable. The patient's condition is stable and appropriate for discharge from the emergency department. The patient will pursue further outpatient evaluation with the primary care ph ysician or other designated or consulting physician as outlined in the discharge instructions. The patient and/or caregivers are agreeable to this plan of care and follow-up instructions have been explained in detail. The patient and/or caregivers have received these instruction. The patient/and or caregivers are aware that any significant change in condition or worsening of symptoms should prompt an immediate return to this or the closest emergency department or call 911. Prescriptions: PANTOPRAZOLE 40 mg Tablet [Protonix 40MG Tablet] 40 mg PO QAM 14 Days #14 tab
[2020-10-24] MEDS ORDERED: XYLOCAINE HCl Viscous ONE (16:49)
[2020-10-24] MEDS ORDERED: Reglan 10 MG/2 ML ONE (16:49)
[2020-10-24] MEDS ORDERED: Sodium Chloride 0.9% 1000 ML 1,000 ML ONE (16:50)
[2020-10-24] MEDS ORDERED: MAALOX ES 30 ML UNIT DOSE ONE (16:50)
[2020-10-24 17:04] LABS: Absolute Neutrophil Ct (ANC) 8.11 (1.4-6.9); BASOPHIL % 0.4 % (0.0-0.4); Basophil (Absolute #) 0.05 (0-0.4); Eosinophil % 1.2 % (0.00-5.0); Eosinophil (Absolute #) 0.14 (0-0.5); Hematocrit 46.1 % (35-47); Hemoglobin 14.9 gm/dl (12.0-16.0); Lymphocyte (Absolute #) 2.18 (1.0-4.6); Lymphocytes % 19.2 % (24.0-44.0); Mean Cell Volume 92.4 fl (78-100); Mean Corpuscular Hemoglobin 29.9 pg (26-32); Mean Corpuscular Hgb Concent. 32.3 g/dl (32-36); Mean Platelet Volume 9.8 fl (7.5-11.0); Monocytes % 7.9 % (0.0-12.0); Neutrophil % 71.3 % (36.0-66.0); Platelet Count 411 K/mm3 (150-450); Red Blood Count 4.99 M/mm3 (4.1-5.4); Red Cell Distribution Width 14.6 % (11.5-14.0); White Blood Count 11.4 K/mm3 (4.0-10.5)
[2020-10-24 17:19] LABS: ALBUMIN 4.5 g/dL (3.5-5.0); ALKALINE PHOSPHATASE 103 U/L (38-126); ANION GAP 10.5 MEQ/L (5-15); BLOOD UREA NITROGEN 28 mg/dL (7-17); CHLORIDE 101 mmol/L (98-107); Carbon Dioxide 30 mmol/L (22-30); Creatinine 1 0.82 mg/dL (0.52-1.04); EST GLOMERULAR FILTRATION RATE > 60.0 ML/MIN; Glucose 142 mg/dL (74-106); LIPASE 161 U/L (23-300); Potassium 3.9 mmol/L (3.5-5.1); SGOT/AST 30 U/L (14-36); SGPT/ALT 18 U/L (0-35); SODIUM 138 mmol/L (137-145); Total Protein 8.4 g/dL (6.3-8.2)
[2020-10-24 18:30] LABS: Appearance CLEAR (CLEAR); Bilirubin NEGATIVE (NEGATIVE); Blood NEGATIVE Ery/ul (0-5); Glucose NEGATIVE (NEGATIVE); Ketones NEGATIVE (NEGATIVE); Leukocyte Esterase NEGATIVE (NEGATIVE); Nitrite NEGATIVE (NEGATIVE); Protein,Urine Dip NEGATIVE (Negative); Specific Gravity 1.021 (1.005-1.025); Urobilinogen NEGATIVE mg/dL (0-1)
[2020-10-24 20:52] VITALS: BP 179/90; PULSE 52; O2SAT 96
--- NOTE | 2020-10-25 08:42 | XRAY ---
Indication: Epigastric pain. Nausea. Multiple contiguous images obtained through the abdomen and pelvis using 80 cc Isovue 370 contrast. Comparison: January 13, 2017. Lung bases again demonstrates scattered fibrosis/scarring. No infiltrate or effusion. Heart is borderline enlarged. Noncontrasted stomach and bowel loops appear nonobstructed. Mild fluid distended small bowel loops with air-fluid leveling, ileus versus enteritis. Scattered descending/sigmoid diverticulosis. No free fluid/air. Again bilateral renal cysts, appendectomy, splenectomy, and hysterectomy. Remaining liver, pancreas, adrenal glands, kidneys, ureters, and bladder are unremarkable. Stable mild scattered aortoiliac calcifications. No AAA or pathologic retroperitoneal lymphadenopathy. Osseous structures intact again with moderate/advanced multilevel degenerative spondylosis and grade 1 spondylolisthesis of L4 on L5 on S1. Impression: 1. Mild fluid distended small bowel loops with fluid leveling, ileus versus enteritis. 2. Incidental cardiomegaly, colonic diverticulosis, bilateral renal cysts, and chronic bony findings.
--- NOTE | 2020-10-25 08:48 | XRAY ---
Indication: Epigastric pain and nausea. Comparison: June 12, 2020. Portable chest clear again with a few incidental calcified granulomas. Heart is borderline enlarged. Bony thorax intact again with osteopenia, degenerative changes, and right shoulder arthroplasty. No new/acute findings.
== END 2020-10-24 21:30 | disposition home or self-care (01) ==
LOC: ED 16:19
DX: R10.13 Epigastric pain (principal); K52.9 Noninfective gastroenteritis and colitis, unspecified; K57.90 Diverticulosis of intestine, part unspecified, without perforation or abscess without bleeding; N28.1 Cyst of kidney, acquired; R10.12 Left upper quadrant pain; R10.11 Right upper quadrant pain; Z79.899 Other long term (current) drug therapy; I10 Essential (primary) hypertension
CPT/HCPCS: 36000; 36415; 71045; 74177; 80053; 81001; 83690; 83880; 84484; 85025; 93005; 96360; 96361; 96374; 96375; 99285; J2270; A9270-GY

== ENCOUNTER 2024-08-25 10:40 | Day surgery (SDC) | payer MEDICARE, OTHER ==
[2024-08-25] MEDS ORDERED: Xylocaine-Mpf 2% 5 Ml Vial IJ ONE (10:41)
[2024-08-25] MEDS ORDERED: Decadron 4 MG INJ IV ONE (10:41)
[2024-08-25] MEDS ORDERED: DIPRIVAN 200 MG/20 ML IV ONE (13:12)
--- NOTE | 2024-08-25 14:19 | XRAY ---
Indication: Right C2-C4 MBB. Intraoperative fluoroscopy provided for 33 seconds. 2 digital spot images submitted for interpretation demonstrates posterior needle tips projecting over the expected right C2-C4 nerve roots. Correlate with intraoperative findings/report.
--- NOTE | 2024-08-25 14:25 | XRAY ---
33 seconds of fluoroscopy was used in surgery for a right C2-C4 MBB.
== END 2024-08-25 13:27 | disposition home or self-care (01) ==
LOC: SDC-PAIN 10:40
PROVIDERS: ATTEND Psychiatry & Neurology Pain Medicine
DX: M47.812 Spondylosis without myelopathy or radiculopathy, cervical region (principal); R73.03 Prediabetes
CPT/HCPCS: 64490; 64491; 72040; 77002; 82947; J1100; J2704

== ENCOUNTER 2024-12-09 07:37 | Day surgery (SDC) | payer MEDICARE, OTHER ==
[2024-12-09] MEDS ORDERED: dexAMETHasone sodium phosphate IJ ONE (07:38)
[2024-12-09] MEDS ORDERED: LIDOCAINE HCL 2% 100 MG/5 ML IJ ONE (07:38)
[2024-12-09] MEDS ORDERED: Lactated Ringers 500 ML IV ONE (07:54)
[2024-12-09] MEDS ORDERED: propofoL IV ONE (09:24)
--- NOTE | 2024-12-09 10:40 | XRAY ---
Indication: Left C2-C4 MBB. Intraoperative fluoroscopy provided for 34 seconds. 3 digital spot image submitted for interpretation demonstrates posterior needle tips projecting over expected left C2-C4 nerve roots. Correlate with intraoperative findings/report.
--- NOTE | 2024-12-09 13:12 | XRAY ---
34 seconds of fluoroscopy was used in surgery for a left C2-C4 MBB.
== END 2024-12-09 10:02 | disposition home or self-care (01) ==
LOC: SDC-PAIN 07:37
PROVIDERS: ATTEND Psychiatry & Neurology Pain Medicine
DX: M47.812 Spondylosis without myelopathy or radiculopathy, cervical region (principal); R73.03 Prediabetes
CPT/HCPCS: 64490; 64491; 72040; 77002; 82947; J1100; J2704

== ENCOUNTER 2025-02-09 07:56 | Day surgery (SDC) | payer MEDICARE, OTHER ==
[2025-02-09] MEDS ORDERED: dexAMETHasone sodium phosphate IJ ONE (07:57)
[2025-02-09] MEDS ORDERED: BUPIVACAINE 0.5% VIAL IJ ONE (07:57)
[2025-02-09] MEDS ORDERED: Lactated Ringers 500 ML IV ONE (08:08)
[2025-02-09] MEDS ORDERED: propofoL IV ONE (10:04)
--- NOTE | 2025-02-09 11:38 | XRAY ---
Indication: Left C2-C4 MBB. Intraoperative fluoroscopy provided for 26 seconds. 2 digital spot image submitted for interpretation demonstrates posterior needle tips projecting over expected left C2-C4 nerve roots. Correlate with intraoperative findings/report.
--- NOTE | 2025-02-09 12:57 | XRAY ---
26 seconds of fluoroscopy was used in surgery for a left C2-C4 MBB.
== END 2025-02-09 10:41 | disposition home or self-care (01) ==
LOC: SDC-PAIN 07:56
PROVIDERS: ATTEND Psychiatry & Neurology Pain Medicine
DX: M47.812 Spondylosis without myelopathy or radiculopathy, cervical region (principal); R73.03 Prediabetes
CPT/HCPCS: 64490; 64491; 72040; 82947; J1100; J2704

== ENCOUNTER 2025-03-02 07:25 | Day surgery (SDC) | payer MEDICARE, OTHER ==
[2025-03-02] MEDS ORDERED: BUPIVACAINE 0.5% VIAL IJ ONE (07:26)
[2025-03-02] MEDS ORDERED: dexAMETHasone sodium phosphate IJ ONE (07:26)
[2025-03-02] MEDS ORDERED: LIDOCAINE HCL 1% 50 MG/5 ML VL IJ ONE (07:26)
[2025-03-02] MEDS ORDERED: propofoL IV ONE (08:48)
[2025-03-02] MEDS ORDERED: Lactated Ringers 1,000 ML IV ONE (09:09)
--- NOTE | 2025-03-02 10:56 | XRAY ---
Indication: Left C2-C4 RFA. Intraoperative fluoroscopy provided for 15 seconds. 2 digital spot images submitted for interpretation demonstrates posterior needle tips projecting over expected left C2-C4 nerve roots. Correlate with intraoperative findings/report.
--- NOTE | 2025-03-02 11:02 | XRAY ---
15 seconds of fluoroscopy was used in surgery for a left C2-C4 RFA.
== END 2025-03-02 09:22 | disposition home or self-care (01) ==
LOC: SDC-PAIN 07:25
PROVIDERS: ATTEND Psychiatry & Neurology Pain Medicine
DX: M47.812 Spondylosis without myelopathy or radiculopathy, cervical region (principal); R73.03 Prediabetes
CPT/HCPCS: 64633; 64634; 72040; 82947; 99100; J1100; J2704